=== PATIENT | male | born 1975 | race Two or more races ===

== ENCOUNTER 2020-01-25 10:54 | Emergency (ER) | payer OTHER, SELFPAY | END 2020-01-25 12:22 | disposition left against medical advice (07) | PROVIDERS: Emergency Provider Emergency Medicine; PCP Nurse Practitioner Family | DX: F41.9 Anxiety disorder, unspecified (principal) | CPT/HCPCS: 99281 ==

== ENCOUNTER → 2020-06-27 10:58 | Outpatient (BNVA) | payer OTHER, SELFPAY | PROVIDERS: Visit Provider Internal Medicine | DX: F11.99 Opioid use, unspecified with unspecified opioid-induced disorder (principal) | CPT/HCPCS: 80305; 99212 ==

== ENCOUNTER → 2020-07-03 11:13 | Outpatient (BNVA) | payer OTHER, SELFPAY | PROVIDERS: Visit Provider Internal Medicine | DX: Z51.81 Encounter for therapeutic drug level monitoring (principal) | CPT/HCPCS: 80305; 99211 ==

== ENCOUNTER → 2020-07-17 10:32 | Outpatient (BNVA) | payer OTHER, SELFPAY | PROVIDERS: Visit Provider Internal Medicine | DX: Z51.81 Encounter for therapeutic drug level monitoring (principal) | CPT/HCPCS: 80305; 99211 ==

== ENCOUNTER → 2020-07-23 10:45 | Outpatient (BNVA) | payer OTHER, SELFPAY | PROVIDERS: Visit Provider Internal Medicine | DX: Z51.81 Encounter for therapeutic drug level monitoring (principal) | CPT/HCPCS: 80305; 99212 ==

== ENCOUNTER → 2020-08-21 09:51 | Outpatient (BNVA) | payer OTHER, SELFPAY | PROVIDERS: Visit Provider Nurse Practitioner Psychiatric/Mental Health | DX: F11.99 Opioid use, unspecified with unspecified opioid-induced disorder (principal); F12.90 Cannabis use, unspecified, uncomplicated; F14.90 Cocaine use, unspecified, uncomplicated | CPT/HCPCS: 80305; 99212 ==

== ENCOUNTER 2020-08-28 09:37 | Outpatient (REF) | payer OTHER, SELFPAY ==
[2020-08-28 11:52] LABS: Hemoglobin 13.9 g/dl (14.0-18.0); Mean Corpuscular HGB Conc 33.1 g/dl (31.0-36.0); Mean Corpuscular Volume 93.5 fL (80-98); Mean Platelet Volume 9.9 fL (9.4-12.4); NRBC Pct Auto 0.8 /100WBC (0.0-0.2); Platelet Count 298 X10*3/uL (160-400); Red Blood Count 4.49 X10*6/uL (4.60-5.80); White Blood Count 6.3 X10*3/uL (4.8-10.8)
[2020-08-28 12:13] LABS: Alanine Aminotransferase 14 U/L (0-40); Albumin Level 4.3 g/dL (3.5-5.0); Alkaline Phosphatase 79 U/L (39-117); Anion Gap 14 (12-20); Aspartate Amino Transferase 15 U/L (5-37); Bilirubin Direct < 0.2 mg/dL (0.0-0.5); Bilirubin Total 0.3 mg/dL (0.0-1.0); Blood Urea Nitrogen 15 mg/dL (9-16); Calcium 9.6 mg/dL (8.4-10.2); Carbon Dioxide 29 mmol/L (22-29); Chloride 105 mmol/L (96-108); Estimated Glomerular Filt Rate > 60; Glucose Random 87 mg/dL (60-115); Potassium 4.9 mmol/L (3.3-5.1); Sodium 143 mmol/L (135-145); Total Protein 7.3 g/dL (6.5-8.0)
[2020-08-28 12:28] LABS: HBS Num1 0.85 mIU/mL (0-7.99); HIV AB/AG Nonreactive (Nonreactive); HIV Num 1 0.06 S/CO (0.00-0.99); Hepatitis B Surface Antigen Negative (Negative); ~HepC Num1 0.17 S/CO (0.00-0.79); ~Hepatitis B Surface Antibody NONREACTIVE (Nonreactive); ~Hepatitis C Antibody Nonreactive (Nonreactive)
[2020-08-29 08:48] LABS: Hepatitis A Antibody IgG REACTIVE (Nonreactive); ~Hepatitis A Antibody IgG 3.73 S/CO (0.00-0.99)
[2020-08-30 23:07] LABS: TS Negative Control Passed; TS Panel A 0; TS Panel B 0; TS Positive Control Passed; TSpotTB Negative (SeeBelow)
== END 2020-08-28 09:38 | disposition home or self-care (01) ==
LOC: HO.LAB 09:37
PROVIDERS: Absent Provider Internal Medicine; PCP Nurse Practitioner Family; Visit Provider Nurse Practitioner Psychiatric/Mental Health
DX: F11.99 Opioid use, unspecified with unspecified opioid-induced disorder (principal); Z51.81 Encounter for therapeutic drug level monitoring
CPT/HCPCS: 36415; 80048; 80076; 85027; 86481; 86706; 86708; 86803; 87340; 87389; 99212

== ENCOUNTER → 2020-09-12 10:22 | Outpatient (BNVA) | payer OTHER, SELFPAY | PROVIDERS: Visit Provider Nurse Practitioner Psychiatric/Mental Health | DX: Z51.81 Encounter for therapeutic drug level monitoring (principal) | CPT/HCPCS: 80305; 99211 ==

== ENCOUNTER 2020-09-20 11:57 | Emergency (ER) | payer OTHER, SELFPAY ==
[2020-09-20 12:08] VITALS: BP 108/50; PULSE 51; RESP 16; TEMP 36.8; O2SAT 99; BMI 19.0
[2020-09-20 12:12] VITALS: BP 115/41; PULSE 56; O2SAT 100
[2020-09-20 12:32] LABS: Glucose Urine UA NEG (NEG); Leukocyte Esterase Urine NEG (NEG); Nitrite Urine NEG (NEG); Specific Gravity - Urine >= 1.030 (1.005-1.025); Urine Blood NEG (NEG); Urine Ketones NEG (NEG); Urine Protein NEG (NEG-TRACE)
[2020-09-20 12:33] LABS: Appearance Urine HAZY; Color Urine YELLOW
--- NOTE | 2020-09-20 12:38 | ED_ITS ---
HPI - Extremity Problem General Chief complaint: Extremity Injury, Upper Stated complaint: R HAND TINGLING/NUMB S/P HEROIN USE 2 DAYS AGO Time Seen by Provider: 09/20/20 12:09 Source: patient Mode of arrival: ambulatory History of Present Illness HPI Narrative: 44-year-old male with a past medical history of substance abuse presenting to the ED complaining of right hand/forearm numbness/tingling x2 days S/P injecting heroin and cocaine into hand. Reports doses 1st time and acting in to right hand. Admits after used believes he fell asleep on arm/hand. Denies known injury/trauma or for home. Denies fever, chills, weakness. States he is [facility] Related Data Previous Rx's Medication Instructions Recorded aclidinium bromide 400 1 inh PO BID #1 insert 07/24/20 mcg/actuation breath activated powder inhaler baclofen 20 mg tablet 20 mg PO DAILY PRN #30 tab 07/24/20 montelukast 10 mg tablet 10 mg PO BEDTIME 90 Days #90 tab 07/24/20 quetiapine 300 mg tablet 300 mg PO DAILY 30 Days #30 tab 07/24/20 hydroxyzine pamoate 25 mg capsule 25 mg PO TID PRN 7 Days #21 cap 08/21/20 naloxone 4 mg/actuation nasal spray 4 mg INTRANASAL Q2M PRN #2 ea 08/21/20 clonazepam 1 mg tablet 1 mg PO BID PRN 30 Days #60 tab 08/25/20 gabapentin 100 mg capsule 200 mg PO TID 30 Days #180 cap 08/31/20 ondansetron HCl 8 mg tablet 8 mg PO DAILY PRN #30 tab 09/02/20 albuterol sulfate 90 mcg/actuation 2 inh INHALATION Q4H PRN 30 Days 09/08/20 breath activated powder inhaler #1 ea buprenorphine 8 mg-naloxone 2 mg 1 film SUBLINGUAL BID 6 Days #12 ea 09/12/20 sublingual film acetaminophen [Tylenol Extra 500 mg PO Q6H PRN #20 tab 09/20/20 Strength] naproxen 500 mg PO BID PRN 10 Days #20 tab 09/20/20 Allergies Allergy/AdvReac Type Severity Reaction Status Date / Time amoxicillin [AMOXICILLIN] AdvReac Intermediate NAUSEA & Verified 08/28/20 09:51 VOMITING clavulanic acid [Augmentin] AdvReac Intermediate Vomiting Verified 08/28/20 09:51 Review of Systems Review of Systems: Constitutional: No Fever, No Chills, No Fatigue, No Malaise Cardiovascular: No Chest Pain, No SOB Respiratory: No Cough, No Dyspnea Gastrointestinal: No Nausea, No Vomiting, No Abdominal pain Musculoskeletal: + joint pain, No Myalgias, No Joint Swelling Skin: No Skin Lesions, No rash Neuro: No Weakness, + Numbness, + Paresthesias, No Headache Yes all other systems are reviewed and are negative [facility], [facility] Past Medical History Attestation statement: The following information was validated with the patient. Medical History (Updated 09/20/20 @ 12:41 by CARLEY Noriega) Opioid use disorder Social History Social History Advance Directives: No Advance Directives Information Provided: No Physical Exam Vital Signs: Vital Signs: Last Vital Signs Temp 98.3 F 09/20/20 12:08 Pulse 51 09/20/20 12:08 Resp 16 09/20/20 12:08 BP 108/50 L 09/20/20 12:08 Pulse Ox 99 09/20/20 12:08 Body Mass Index 19.0 Const: General: cooperative, healthy appearing and no acute distress Orientation/consciousness: patient oriented x3 Limitations: no limitations HENMT: Head: Yes normal to inspection Ears: hearing grossly normal bilaterally General nose exam: Normal external nose present Face and sinus: Yes normal facial exam Eyes: General: appearance normal, both eyes and all related structures EOM: EOMs intact bilaterally Neck: Neck: Yes normal visual inspection and Yes no meningeal signs Resp: Effort & Inspection: normal respiratory effort Cardio: Rate: regular rate Heart sounds: S1 normal heart sound present and S2 normal heart sound present Peripheral pulses: radial pulses present GI: Inspection: Yes normal to inspection Skin: Rashes: no rashes Wounds: no wounds Neuro: General: patient oriented x3, tone normal, moves all extremities and no meningeal signs Gait exam (Neuro): Normal gait present Motor exam (neuro): 5/5 motor strength present throughout Extrem: General: Yes normal to inspection MDM - Extremity (Nontraumatic) MDM Narrative Medical decision making narrative: 44-year-old male with a past medical history of substance abuse presenting to the ED complaining of right hand/forearm numbness/tingling x2 days S/P injecting heroin and cocaine into hand. On exam VSS, NAD, well appearing, distal pulses intact, full range of motion intact, strength intact, no evidence of infection/cellulitis, no streaking. Likely compressive neuropathy. Low concern for ischemia or DVT. Discussed with patient worrisome signs and symptoms and strict return precautions. He [facility] on Tuesday Lab Data Labs: Lab Results 09/20/20 Range/Units 12:26 Urine Color YELLOW Urine Appearance HAZY Urine pH 6.0 (5.0-8.0) Ur Specific [place] >= 1.030 H (1.005-1.025) Urine Protein NEG (NEG-TRACE) MG/DL Urine Glucose (UA) NEG (NEG) MG/DL Urine Ketones NEG (NEG) MG/DL Urine Blood NEG (NEG) Urine Nitrite NEG (NEG) Ur Leukocyte Esterase NEG (NEG) Discharge Plan Discharge Clinical Impression: Compression neuropathy of upper extremity Qualifiers: Laterality: right Qualified Code(s): G56.91 - Unspecified mononeuropathy of right upper limb Patient Disposition: Home, Self-Care Instructions: Peripheral Neuropathy (ED) Additional Instructions: Avoid injecting any cocaine in your extremities Take ibuprofen and Tylenol as needed Apply heat, practice massaging/exercises Follow-up with your primary care doctor Prescriptions: New acetaminophen [Tylenol Extra Strength] 500 mg tablet 500 mg PO Q6H PRN (Reason: pain or fever) Qty: 20 RF: 0 naproxen 500 mg tablet 500 mg PO BID PRN (Reason: pain) 10 Days Qty: 20 RF: 0 No Action Tudorza Pressair 400 mcg/actuation aerosol powdr breath activated 1 inh PO BID Qty: 1 RF: 2 baclofen 20 mg tablet 20 mg PO DAILY PRN (Reason: muscle pain) Qty: 30 RF: 5 montelukast 10 mg tablet 10 mg PO BEDTIME 90 Days Qty: 90 RF: 1 quetiapine [Seroquel] 300 mg tablet 300 mg PO DAILY 30 Days Qty: 30 RF: 2 clonazepam 1 mg tablet 1 mg PO BID PRN (Reason: anxiety) 30 Days Qty: 60 RF: 0 gabapentin 100 mg capsule 200 mg PO TID 30 Days Qty: 180 RF: 2 ondansetron HCl 8 mg tablet 8 mg PO DAILY PRN (Reason: for nausea) Qty: 30 RF: 0 albuterol sulfate 90 mcg/actuation aerosol powdr breath activated 2 inh inhalation Q4H PRN (Reason: shortness of breath) 30 Days Qty: 1 RF: 3 buprenorphine-naloxone 8-2 mg film 1 film sublingual BID 6 Days Qty: 12 RF: 0 hydroxyzine pamoate [Vistaril] 25 mg capsule 25 mg PO TID PRN (Reason: itching) 7 Days Qty: 21 RF: 0 naloxone 4 mg/actuation spray,non-aerosol 4 mg intranasal Q2M PRN (Reason: opioid overdose) Qty: 2 RF: 0 Referrals: ED Physician,Generic [Physician] - 2 days Discharge Date/Time: 09/20/20 12:50
== END 2020-09-20 12:50 | disposition home or self-care (01) ==
PROVIDERS: Physician Assistant; Emergency Provider Emergency Medicine
DX: G56.91 Unspecified mononeuropathy of right upper limb (principal); F14.10 Cocaine abuse, uncomplicated; F11.20 Opioid dependence, uncomplicated
CPT/HCPCS: 81003; 99283

== ENCOUNTER → 2020-09-25 10:42 | Outpatient (BNVA) | payer OTHER, SELFPAY | PROVIDERS: Visit Provider Nurse Practitioner Psychiatric/Mental Health | DX: F11.99 Opioid use, unspecified with unspecified opioid-induced disorder (principal) | CPT/HCPCS: 80305; 99212 ==

== ENCOUNTER → 2020-12-30 10:09 | Outpatient (REF) | payer OTHER, SELFPAY ==
--- NOTE | 2020-12-30 10:16 | ECG_ITS ---
Test Reason : metadone, qt prolong Blood Pressure : / mmHG Vent. Rate : 059 BPM Atrial Rate : 059 BPM P-R Int : 146 ms QRS Dur : 074 ms QT Int : 364 ms P-R-T Axes : 067 048 044 degrees QTc Int : 360 ms Sinus bradycardia Otherwise normal ECG When compared with ECG of 05-JUL-2016 13:29, Questionable change in QRS axis ST elevation now present in Anterior leads Referred By: Sandra Baker Electronically Signed By:RANJIT DANIEL
== END ==
LOC: HO.CARD 10:09
PROVIDERS: PCP Nurse Practitioner Family; Visit Provider Family Medicine
DX: Z79.899 Other long term (current) drug therapy (principal)
CPT/HCPCS: 93005

== ENCOUNTER 2021-05-20 11:53 | Emergency (ER) | payer OTHER, SELFPAY ==
--- NOTE | ~2021-05-20 | XR_ITS ---
EXAMINATION: XR CHEST CLINICAL INFORMATION: Pain in left side of the chest COMPARISON: 07/05/2016 TECHNIQUE: 2 views of the chest were obtained. FINDINGS: No significant abnormality is noted involving the heart, lungs, mediastinum, bony thorax or soft tissues. XR/XR chest 2V IMPRESSION: Unremarkable examination.
[2021-05-20 11:59] VITALS: BP 117/47; PULSE 70; RESP 16; TEMP 36.6; O2SAT 98; BMI 20.2
[2021-05-20 13:10] VITALS: BP 135/64; PULSE 70; RESP 18; TEMP 36.1; O2SAT 96
--- NOTE | 2021-05-20 14:38 | ED.GENADULT ---
HPI - General Adult General Chief complaint: General Medical Stated complaint: LUNG PAIN Time Seen by Provider: 05/20/21 14:18 Source: patient Mode of arrival: ambulatory Limitations: no limitations History of Present Illness HPI narrative: 45-year-old male who presents emergency department for evaluation of chest pain, cough and shortness of breath. The patient states that he has asthma and COPD and he often gets chest pain. He states that is experiencing pain in the left side of his chest. He states the pain is a constant, sharp tightness which is worse with coughing, breathing and lying down flat. He states that his doctor recently treated with prednisone which causes the pain to resolve but now the pain has returned. He states that he has a cough which is nonproductive. States he feels short of breath but this is improved when he uses inhaler. He denied fever, chills, nausea, vomiting, myalgias, arthralgias. Patient states he has had COVID-19 infections twice last year. The patient is in a methadone maintenance program. He states that he recently used heroin 4 days prior. He states he does have intranasal Narcan at home. Related Data Previous Rx's Medication Instructions Recorded hydroxyzine pamoate 25 mg capsule 25 mg PO TID PRN 7 Days #21 cap 08/21/20 (Vistaril) acetaminophen 500 mg tablet 500 mg PO Q6H PRN #20 tab 09/20/20 (Tylenol Extra Strength) buprenorphine 8 mg-naloxone 2 mg 1 film SUBLINGUAL BID #14 ea 09/25/20 sublingual film baclofen 20 mg tablet 20 mg PO DAILY PRN #30 tab 10/29/20 ondansetron HCl 8 mg tablet 8 mg PO DAILY PRN #30 tab 12/18/20 albuterol sulfate 90 mcg/actuation 2 inh INHALATION Q4H PRN 30 Days 01/13/21 breath activated powder inhaler #1 ea montelukast 10 mg tablet 10 mg PO BEDTIME 90 Days #90 tab 02/10/21 clonidine HCl 0.1 mg tablet 0.1 mg PO BEDTIME 30 Days #30 tab 03/10/21 gabapentin 100 mg capsule 200 mg PO TID 30 Days #180 cap 03/10/21 aclidinium bromide 400 1 inh PO BID #1 insert 03/18/21 mcg/actuation breath activated powder inhaler (Tudorza Pressair) naproxen 500 mg tablet 500 mg PO BID PRN 10 Days #20 tab 04/02/21 clonazepam 1 mg tablet 1 mg PO BID PRN 30 Days #60 tab 05/04/21 naloxone 4 mg/actuation nasal spray 4 mg INTRANASAL Q2M PRN #2 ea 05/04/21 prednisone 20 mg tablet 40 mg PO DAILY 5 Days #10 tab 05/04/21 quetiapine 300 mg tablet 300 mg PO DAILY #90 tab 05/11/21 prednisone 20 mg tablet 60 mg PO DAILY 5 Days #15 tab 05/20/21 Allergies Allergy/AdvReac Type Severity Reaction Status Date / Time amoxicillin [AMOXICILLIN] AdvReac Intermediate NAUSEA & Verified 08/28/20 09:51 VOMITING clavulanic acid [Augmentin] AdvReac Intermediate Vomiting Verified 08/28/20 09:51 Review of Systems Review of Systems: Yes all other systems are reviewed and are negative [facility] Past Medical History [facility] Narrative: Past medical history: Asthma, COPD, chronic neck and back pain, COVID-19 infection x2. Social history: He denies tobacco use. He denies alcohol use. He is in a methadone maintenance program. He states that he last used heroin for 4 days prior. Medical History Opioid use disorder Social History Social History (Updated 09/25/20 @ 11:01 by Myranda Lowry CMA) Patient Tobacco Use Status: Never used Tobacco Advance Directives: No Advance Directives Information Provided: No Physical Exam ED Vital Signs: Vital Signs - 24 hr 05/20/21 11:59 Temperature 98 F Pulse Rate 70 Respiratory Rate 16 Blood Pressure 117/47 L Pulse Oximetry 98 BMI result Body Mass Index 20.2 Const General: cooperative and no acute distress Orientation/consciousness: oriented to person and oriented to place Limitations: no limitations HENMT Head: Yes normal to inspection, Yes normocephalic and Yes atraumatic Ears: external ears normal General nose exam: Normal external nose present Face and sinus: Yes normal facial exam Mouth: Normal oral and palatal mucosa present Throat: Yes posterior oropharynx normal Eyes General: appearance normal, both eyes and all related structures Pupils: Equal, round and reactive pupils present Neck Neck: Yes normal visual inspection, Yes no lymphadenopathy, Yes trachea midline and Yes supple Chest Chest palpation & inspection: normal inspection of the chest and tenderness (Left chest wall) Resp Effort & Inspection: normal respiratory effort and able to speak in complete sentences Auscultation: wheezes (Diffuse wheezing at the end of expiration.) Cardio Rate: regular rate Rhythm: regular rhythm Heart sounds: S1 normal heart sound present, S2 normal heart sound present and no murmurs GI Inspection: Yes normal to inspection Palpation (GI): Soft to palpation, nontender and no guarding Auscultation: normal bowel sounds General: Yes no CVA tenderness Back/Spine/Pelvis Back: no CVA tenderness Skin General skin exam: no rashes or lesions noted Neuro General: oriented to person and oriented to place Cranial nerves: Yes CN's II-XII intact bilaterally and Yes Equal, round and reactive pupils present Cognition (Neuro): normal cognition Motor exam (neuro): 5/5 motor strength present throughout Extrem General: Yes normal to inspection Psych Appearance: grossly normal Speech and movement: Normal speech and movement present Affect: normal affect Attitude: cooperative Thought process: Normal thought process present Thought content: Normal thought content present Course Course Course Narrative: 45-year-old male with a history of asthma COPD who presents emergency department for evaluation of left-sided chest pain, cough shortness of breath. Vital signs were normal with an O2 saturation 98% on room air. Physical examination did reveal left-sided chest wall tenderness wheezing at the end of expiration. Chest x-ray was negative. Patient's presentation is consistent with pleuritic chest pain is likely related to his asthma. The patient was started on prednisone 60 mg once a day for 5 days. He was given printed and verbal instructions discharged home. Discharge Plan Discharge Clinical Impression: Asthma exacerbation, Chest pain, pleuritic Patient Disposition: Home, Self-Care Instructions: Asthma (DC) Additional Instructions: Continue using your inhaler is and nebulizer as prescribed by your doctor Take prednisone 20 mg pills, 3 pills once a day for 5 days. Follow-up with your doctor in 2 days. Please return to the emergency department if your symptoms get worse or if you develop any symptoms that are concerning to you. Prescriptions: New prednisone 20 mg tablet 60 mg PO DAILY 5 Days Qty: 15 0RF No Action baclofen 20 mg tablet 20 mg PO DAILY PRN (Reason: muscle pain) Qty: 30 5RF ondansetron HCl 8 mg tablet 8 mg PO DAILY PRN (Reason: for nausea) Qty: 30 0RF albuterol sulfate 90 mcg/actuation aerosol powdr breath activated 2 inh inhalation Q4H PRN (Reason: shortness of breath) 30 Days Qty: 1 3RF montelukast 10 mg tablet 10 mg PO BEDTIME 90 Days Qty: 90 1RF gabapentin 100 mg capsule 200 mg PO TID 30 Days Qty: 180 2RF clonidine HCl 0.1 mg tablet 0.1 mg PO BEDTIME 30 Days Qty: 30 2RF Tudorza Pressair 400 mcg/actuation aerosol powdr breath activated 1 inh PO BID Qty: 1 2RF naproxen 500 mg tablet 500 mg PO BID PRN (Reason: pain) 10 Days Qty: 20 0RF prednisone 20 mg tablet 40 mg PO DAILY 5 Days Qty: 10 0RF clonazepam 1 mg tablet 1 mg PO BID PRN (Reason: anxiety) 30 Days Qty: 60 0RF naloxone 4 mg/actuation spray,non-aerosol 4 mg intranasal Q2M PRN (Reason: opioid overdose) Qty: 2 0RF Rx Instructions: spray 1 dose into ONE nostril; alternate nostrils w each dose until help arrives quetiapine 300 mg tablet 300 mg PO DAILY Qty: 90 0RF acetaminophen [Tylenol Extra Strength] 500 mg tablet 500 mg PO Q6H PRN (Reason: pain or fever) Qty: 20 0RF hydroxyzine pamoate [Vistaril] 25 mg capsule 25 mg PO TID PRN (Reason: itching) 7 Days Qty: 21 0RF buprenorphine-naloxone 8-2 mg film 1 film sublingual BID Qty: 14 0RF
== END 2021-05-20 14:56 | disposition home or self-care (01) ==
PROVIDERS: Emergency Provider Emergency Medicine Emergency Medical Services; PCP Nurse Practitioner Family
DX: J45.901 Unspecified asthma with (acute) exacerbation (principal); R07.89 Other chest pain; F11.20 Opioid dependence, uncomplicated
CPT/HCPCS: 71046; 99283; 99284

== ENCOUNTER 2023-02-22 07:02 | Emergency (ER) | payer OTHER, SELFPAY ==
--- NOTE | ~2023-02-22 | XR_ITS ---
EXAMINATION: XR CHEST CLINICAL INFORMATION: Diffuse chest pain. COMPARISON: None available. TECHNIQUE: 2 views of the chest were obtained. FINDINGS: The lungs are hyperinflated but clear of acute process. Heart size and pulmonary vascularity is normal. No gross bony abnormality seen. XR/XR chest 2V IMPRESSION: Unremarkable chest examination.
--- NOTE | ~2023-02-22 | CT_ITS ---
EXAMINATION: CT ANGIOGRAM OF THE CHEST WITH AND WITHOUT CONTRAST (CT PULMONARY ANGIOGRAM FOR PE) CLINICAL INFORMATION: Reason for Exam elevated d dimer, L sided chest pain, travel COMPARISON: CTA chest from 06/16/2016 TECHNIQUE: Prior to contrast administration, noncontrast localization images were obtained. Subsequently, multidetector volumetric imaging was performed from the thoracic inlet to below the diaphragms following the administration of 80 mL Omnipaque 350 intravenous contrast. No contrast reaction reported Sagittal, coronal, and MIP oblique sagittal reformatted images were obtained on the CT workstation, uploaded to PACS, and reviewed. This CT examination was performed using dose optimization techniques as appropriate, variously including the following: *Automated exposure control *Adjustment of mA and/or kV according to patient size (this includes techniques or standardized protocols for targeted exams where dose is matched to indication/reason for exam; i.e. extremities or head) *Use of iterative reconstruction technique Total exam dose-length product 226 mGy-cm FINDINGS: QUALITY OF STUDY/CONTRAST BOLUS: Satisfactory. PULMONARY ARTERIES: No pulmonary emboli. Main pulmonary artery is not enlarged. THORACIC AORTA: No aneurysm. LUNG/PLEURA: Biapical pleural parenchymal scarring. Stable subpleural nodule along the posterior aspect of the left upper lobe measuring 4 mm (series 7, image 261). Remaining pleural-based nodular foci are stable. No new enlarged or suspicious pulmonary nodules or masses are noted. Central airways are patent. No pneumothorax. No large pleural effusion. MEDIASTINUM: Heart is not enlarged. No pericardial effusion. No coronary artery calcifications are noted. No enlarged lymph nodes per size criteria. No evidence of septal bowing or right heart strain. CORONARY ARTERY CALCIFICATION: None visualized on this study. CHEST WALL/AXILLA: No axillary or internal mammary lymphadenopathy. OSSEOUS STRUCTURES: No acute or suspicious osseous abnormality. UPPER ABDOMEN: Unremarkable. No reflux of contrast into the hepatic veins to suggest elevated right heart pressures. CT/CT angio chest PE protocol IMPRESSION: 1. No pulmonary emboli. 2. Stable bilateral pulmonary nodules the largest measuring up to 4 mm. No new enlarged or suspicious pulmonary nodules or masses are noted.
--- NOTE | 2023-02-22 07:07 | ECG_ITS ---
Test Reason : cp Blood Pressure : / mmHG Vent. Rate : 063 BPM Atrial Rate : 063 BPM P-R Int : 148 ms QRS Dur : 086 ms QT Int : 380 ms P-R-T Axes : 074 023 048 degrees QTc Int : 388 ms Sinus rhythm with Premature supraventricular complexes Minimal voltage criteria for LVH, may be normal variant ( [place] product ) RSR' or QR pattern in V1 suggests right ventricular conduction delay Nonspecific ST abnormality Abnormal ECG When compared with ECG of 30-DEC-2020 10:23, Premature supraventricular complexes are now Present Referred By: Generic ED Physician Electronically Signed By:NICHOLAS PETERSON MD
[2023-02-22 07:12] VITALS: BP 137/82; PULSE 67; RESP 16; TEMP 36.8; O2SAT 97; BMI 18.4
--- NOTE | 2023-02-22 07:44 | ED_ITS ---
HPI - Chest Pain General Chief Complaint: Chest Pain Stated Complaint: Chest pain Time Seen by Provider: 02/22/23 07:38 Source: patient Mode of arrival: ambulatory Limitations: no limitations History of Present Illness HPI narrative: 47 year old male with pmhx significant for asthma, COPD, IV heroin abuse, opioid use disorder on methadone presents to the ED today with a complaint of left- sided lung pain x5 days. Reports driving home from a hunting trip in [facility] 5 days ago when he began having sudden onset left sided chest pain. Pain has not been intermittent since onset. Describes it as sharp/stabbing in character. No radiation. Rates pain intensity 10/10 at its worst. 1/10 at present. Pain exacerbated with deep breathing and reaching forward with left arm. Admits to taking an old prescription of doxycycline over the last 4 days in attempt to resolve his symptoms. Endorses incidental finding of 4 mm left lung nodule 10 years ago however has not followed up for this. Endorses marijuana use and IV heroin use, last used heroin yesterday. Denies tick bites. Admits to occasional night sweats. Denies fever, chills, rash, weight changes, fatigue, joint swelling, neck or back pain, palpitations, SOB, n/v, calf pain. Related Data Previous Rx's Medication Instructions Recorded hydroxyzine pamoate 25 mg capsule 25 mg PO TID PRN itching 7 days 08/21/20 (Vistaril) #21 caps acetaminophen 500 mg tablet 500 mg PO Q6H PRN pain or fever 09/20/20 (Tylenol Extra Strength) #20 tabs buprenorphine 8 mg-naloxone 2 mg 1 film sublingual BID #14 ea 09/25/20 sublingual film ondansetron HCl 8 mg tablet 8 mg PO DAILY PRN for nausea #30 12/18/20 tabs naloxone 4 mg/actuation nasal spray 4 mg intranasal Q2M PRN opioid 05/04/21 overdose #2 ea prednisone 20 mg tablet 40 mg (2 x 20 mg) PO DAILY 5 days 05/04/21 #10 tabs prednisone 20 mg tablet 60 mg (3 x 20 mg) PO DAILY 5 days 05/20/21 #15 tabs montelukast 10 mg tablet 10 mg PO BEDTIME 90 days #90 tabs 07/15/21 aclidinium bromide 400 1 inh PO BID #1 insert 07/27/21 mcg/actuation breath activated powder inhaler (Tudorza Pressair) loratadine 10 mg tablet 10 mg PO DAILY 30 days #30 tabs 08/25/21 albuterol sulfate 90 mcg/actuation 2 puff inhalation Q6H PRN 12/16/21 aerosol inhaler shortness of breath or wheezing 30 days #8.5 grams baclofen 20 mg tablet 20 mg PO DAILY PRN muscle pain #30 01/15/22 tabs naproxen 500 mg tablet 500 mg PO BID PRN pain 10 days #20 01/15/22 tabs fluticasone propionate 50 1 spray intranasal BID 30 days #16 01/17/22 mcg/actuation nasal grams spray,suspension clonazepam 1 mg tablet 1 mg PO BID PRN anxiety 30 days 03/24/22 #60 tabs clonidine HCl 0.1 mg tablet 0.1 mg PO BEDTIME 30 days #30 tabs 03/24/22 gabapentin 100 mg capsule 200 mg (2 x 100 mg) PO TID 30 days 03/24/22 #180 caps albuterol sulfate 2.5 mg/3 mL 2.5 mg (3 mL) inhalation Q6H PRN 04/15/22 (0.083 %) solution for nebulization shortness of breath or wheezing 30 days #180 mL quetiapine 300 mg tablet 300 mg PO DAILY #90 tabs 04/15/22 levalbuterol HCl 1.25 mg/3 mL 1.25 mg (3 mL) inhalation TID PRN 04/29/22 solution for nebulization (Xopenex) shortness of breath or wheezing #90 mL indomethacin 25 mg capsule 25 mg PO Q6-8H PRN pain (scale 02/22/23 score 4-6) #20 caps Allergies Allergy/AdvReac Type Severity Reaction Status Date / Time amoxicillin [AMOXICILLIN] AdvReac Intermediate NAUSEA & Verified 02/22/23 07:42 VOMITING clavulanic acid [Augmentin] AdvReac Intermediate Vomiting Verified 02/22/23 07:42 Review of Systems 2 Review of Systems: Constitutional: No fever, chills, fatigue, +night sweats, No weight changes ENT/Mouth: No ear pain, hearing loss, nasal congestion, sinus pain, rhinorrhea, sore throat Eyes: No eye pain, swelling, redness, vision changes, discharge Cardio: +chest pain, No palpitations, [place], orthopnea, peripheral edema Pulm: No SOB, cough, sputum, wheezing, dyspnea, hemoptysis GI: No nausea, vomiting, hematemesis, abdominal pain, diarrhea, constipation, hematochezia, melena : No irregular bleeding, dysuria, frequency, urgency, hesitancy, hematuria, flank pain, urinary flow changes, urinary incontinence or retention MSK: No back pain, neck pain, joint pain, myalgias Skin: No lesions, rashes Neuro: No weakness, numbness, paresthesias, LOC, dizziness, headache All other systems reviewed and are negative. [facility] Past Medical History Attestation statement: The following information was validated with the patient. Source: old records reviewed and nursing notes reviewed Medical History Back pain Leg pain Hypogonadism in male Chronic obstructive pulmonary disease (COPD) Asthma Opioid use disorder Surgical History History of surgery on arm Social History Patient Tobacco Use Status: Never used Tobacco Smoked in Last 30 Days: No Use of substances other than those prescribed or required for medical reasons: Yes Substance Use Type: Heroin Substance Use Frequency: Daily Last Used Substance: Hours (ago) Any prior treatment program specific to substance use: Yes Advance Directives: No Advance Directives Information Provided: Yes Physical Exam 2 Vital Signs: Vital Signs: Last Vital Signs Temp 98.2 F 02/22/23 07:12 Pulse 62 02/22/23 14:29 Resp 18 02/22/23 14:29 BP 134/87 02/22/23 14:29 Pulse Ox 99 02/22/23 14:29 O2 Del Method Room Air 02/22/23 14:29 BMI result Body Mass Index 18.4 Vital signs stable Const: General: cooperative, healthy appearing, comfortable, no acute distress, alert and awake Nutritional Appearance: thin O rientation/consciousness: patient oriented x3 Limitations: no limitations HEENT: Head: Yes normal to inspection Ears: hearing grossly normal bilaterally Mouth: Normal oral and palatal mucosa present and moist mucous membranes Eyes: General: appearance normal, both eyes and all related structures C onjunctivae: conjunctivae normal Sclerae: sclerae normal Pupils: Equal, round and reactive pupils present Neck: Neck: Yes normal visual inspection and Yes no lymphadenopathy Chest: Other: + there is tenderness to palpation of th e left anterolateral chest wall without crepitus or palpable deformity. Chest palpation & inspection: normal inspection of the chest Resp: Effort & Inspection: normal respiratory effort, able to speak in complete sentences, no pursed lip breathing, no respiratory distress, no tripod positioning and symmetric chest movement Auscultation: clear to auscultation bilaterally and no wheezes Cardio: Jugular venous distension: no JVD Rate: regular rate Rhythm: r egular rhythm Peripheral pulses: radial pulses present, posterior tibial pulses present and dorsalis pedis present GI: Inspection: Yes normal to inspection Palpation (GI): Soft to palpation, nontender and no guarding Back/Spine/Pelvis: Other: No midline spinous tenderness. No paraspinal muscle tenderness bilaterally. No step-off deformity Skin: General skin exam: no rashes or lesions noted Neuro: General: patient oriented x3, gait normal and moves all extremities Cranial nerves: Yes Equal, round and reactive pupils present Extrem: General: Yes normal to inspection, Yes capillary refill normal, Yes normal gait and No calf tenderness Course Course Course Narrative: 0930-- CBC without leukocytosis or anemia. H&H stable. Sed rate WNL. CRP slightly elevated to 1.74 > concern for inflammatory process. TSH WNL. No acute electrolyte abnormalities requiring intervention. Urine toxicology positive for fentanyl and marijuana. CXR showing hyperinflated lungs b/l > secondary to COPD. No pneumothorax. Cardiac silhouette WNL. No acute rib fracture noted. EKG showing sinus rhythm with PVCs, rate of 63 bpm, no acute ischemic changes or ST elevations. > awaiting D-dimer D-dimer noted to be 230 to > will obtain CTA chest PE protocol to rule out pulmonary embolism. COVID, flu, RSV negative. 1445-- CTA chest without evidence of pulmonary emboli. There are stable pulmonary nodules noted to bilateral lungs, largest measuring 4 mm. This correlates with patient's history of 4 mm nodule noted to left lung 10 years ago. There are no new enlarging or suspicious pulmonary nodules/masses noted on imaging. > patient informed of lab and imaging results. Patient's workup is overall unremarkable. He now tells me that he was using a bowing air a while he was hunting and this may have contributed to his left-sided chest pain that is worse with movement. Likely musculoskeletal in nature. Will send patient home with indomethacin for pain control. Additionally advised him to follow-up with a profiling machine setup operator for pulmonary nodules on imaging. Provided him with a referral to profiling machine setup operator here at [facility]. Discussed strict return precautions. All questions answered at this time. Patient is agreeable with disposition stable for discharge. Medications Administered Discontinued Medications Generic Name Dose Route Start Last Admin Trade Name Cristi PRN Reason Stop Dose Admin Sodium Chloride 1,000 mls @ 999 mls/hr 02/22/23 09:30 02/22/23 12:13 Ns IV 02/22/23 10:30 Infused .Q1H1M JEANNE Infusion Iohexol 65 ml 02/22/23 12:44 02/22/23 12:44 Iohexol 350 Mg/Ml 50 Ml Infus..Btl IV 02/22/23 12:45 65 ml ONCE ONE Administration Lorazepam 1 mg 02/22/23 13:44 02/22/23 13:56 Lorazepam 1 Mg Tablet PO 02/22/23 13:45 1 mg ONCE ONE Administration Medical Decision Making Medical Decision Making [facility] Narrative: 47 year old male with pmhx significant for asthma, COPD, IV heroin abuse, opioid use disorder on methadone presents to the ED today with a complaint of left- sided lung pain x5 days. Vital signs stable. Patient is nontoxic appearing and in no acute distress. There is tenderness to palpation of the left anterolateral chest wall. No crepitus. Palpable deformity. Abdomen is soft, ND/NT, no rebound tenderness or guarding. No pulsatile mass. Normoactive bowel sounds x4. No rashes noted on exam. Pulses 2+ throughout. Exam nonfocal. Clinical suspicion for MSK sprain/strain, rib fracture, pneumothorax, arrhythmia, ACS, pulmonary embolism, pneumothorax, substance abuse, IV drug use. Unlikely pericarditis, pleuritis, cardiac tamponade, pleural effusion. Plan at this time basic labs, EKG, troponin, D-dimer, chest x-ray. Differential Diagnosis Differential Diagnoses: The differential diagnosis associated with the presentation includes As above. Admission/Observation Consideration of admission/observation: Escalation of care including admission/observation considered In this 47-year-old male with history of pulmonary nodules and sudden left-sided chest pain admission was considered. Lab Data MDM Lab Attestation statement: I reviewed the patient's lab results. As above. 02/22/23 08:00 02/22/23 08:00 Labs: Lab Results 02/22/23 02/22/23 Range/Units 08:00 09:58 WBC 5.9 (4.8-10.8) X10*3/uL RBC 4.40 L (4.60-5.80) X10*6/uL Hgb 14.1 (14.0-18.0) g/dl Hct 42.1 (42.0-52.0) % MCV 95.7 (80.0-98.0) fL MCH 32.0 (27.0-33.0) pg MCHC 33.5 (31.0-36.0) g/dl RDW 13.2 (11.0-16.0) % Plt Count 178 (160-400) X10*3/uL MPV 9.5 (9.4-12.4) fL Immature Gran % (Auto) 0.3 (0.0-0.4) % Neut % (Auto) 55.8 (45-73) % Lymph % (Auto) 33.8 (20-40) % Gaines % (Auto) 7.5 (2-11) % Eos % (Auto) 1.9 (0-4) % Baso % (Auto) 0.7 (0-2) % Lymph # (Auto) 2.0 (1.2-4.9) X10*3/uL Gaines # (Auto) 0.4 (0.1-1.2) X10*3/uL Eos # (Auto) 0.1 (0.0-0.4) X10*3/uL Baso # (Auto) 0.0 (0.0-0.2) X10*3/uL Abs Immat Gran (auto) 0.02 (0.00-0.03) X10*3/uL Absolute Neuts (auto) 3.3 (2.0-8.3) x10*3/uL Absolute Nucleated RBC 0.000 (0.0-0.012) X10*3/uL Nucleated RBC % (auto) 0.0 (0.0-0.2) /100WBC ESR 11 (0-15) MM/HR D-Dimer High Sensitivty 232 NG/ML Sodium 140 (135-145) mmol/L Potassium 4.1 (3.3-5.1) mmol/L Chloride 103 (96-108) mmol/L Carbon Dioxide 32 H (22-29) mmol/L Anion Gap 9 L (12-20) BUN 10 (9-16) mg/dL Creatinine 0.84 (0.5-1.4) mg/dL Estim Creat Clear Calc 91.2 Estimated GFR > 60 Random Glucose 106 (60-115) mg/dL Calcium 9.1 (8.4-10.2) mg/dL Magnesium 2.0 (1.6-2.6) mg/dL Total Bilirubin 0.2 (0.0-1.0) mg/dL AST 24 (5-37) U/L ALT 23 (0-40) U/L Alkaline Phosphatase 61 (39-117) U/L Troponin I High Sens < 2.7 (<3.5-35.0) ng/L C-Reactive Protein 1.74 H (< or = 0.50) mg/dL Total Protein 7.2 (6.5-8.0) g/dL Albumin 4.4 (3.5-5.0) g/dL Lipase 14 (8-78) U/L TSH 0.72 (0.32-4.0) uIU/mL Urine Opiates Screen Not Detected (Not Detect) Urine Fentanyl Screen POSITIVE H (Not Detect) Ur Barbiturates Screen Not Detected (Not Detect) Ur Phencyclidine Scrn Not Detected (Not Detect) Ur Amphetamines Screen Not Detected (Not Detect) U Benzodiazepines Scrn Not Detected (Not Detect) Urine Cocaine Screen Not Detected (Not Detect) U Marijuana (THC) Screen POSITIVE H (Not Detect) Influenza Type A (PCR) NEGATIVE (Negative) Influenza Type B (PCR) NEGATIVE (Negative) RSV RNA Qual (PCR) NEGATIVE (Negative) SARS-CoV-2 RNA (RT-PCR) NEGATIVE (Negative) Independent Interpretation I performed an independent interpretation of an: EKG, Plain X-Ray and CT Scan Interpretation: EKG showing sinus rhythm with PVCs, ventricular rate of 63 beats per minute, QT 380, no acute ischemic changes or ST elevations. Chest x-ray without consolidation or infiltrates, agree with radiologist's interpretation. CTA chest showing bilateral pulmonary nodules, agree with radiologist's interpretation. Radiology Impression Discussion of test interpretation with radiology: I have reviewed the radiologist's reading. Radiologist Impression: XR chest 2V IMPRESSION: Unremarkable chest examination. CT angio chest PE protocol IMPRESSION: 1. No pulmonary emboli. 2. Stable bilateral pulmonary nodules the largest measuring up to 4 mm. No new enlarged or suspicious pulmonary nodules or masses are noted. External Record Review External record reviewed: Inpatient record, Office record, Outpatient record, Prior outpatient labs, Prior outpatient radiology, Primary care record and Outside ED record Prescription Management I considered prescription management with: Pain Medication Chronic Conditions Patient?s care impacted by: Other (COPD, asthma) Critical Care Time Critical Care Time Critical Care Time: No Discharge Plan Discharge Clinical Impression: Atypical chest pain Patient Disposition: Home, Self-Care Instructions: Chest Pain (ED), Chest Wall Pain (ED) Additional Instructions: Your labs today are reassuring. Your EKG was normal. The x-ray of your chest did not exhibit any pneumonia or rib fractures. This CT angiogram of your chest exhibits stable 4 mm pulmonary nodule. Please follow-up with either your primary care doctor or profiling machine setup operator for this. You have been provided with a referral to profiling machine setup operator. You may call them to make an appointment. They will not call you. Indomethacin has been sent to your pharmacy. You may take this as needed for S chest discomfort. If symptoms persist or worsen please return to the emergency department. In the case of an emergency call 911. Prescriptions: New indomethacin 25 mg capsule 25 mg PO Q6-8H PRN (Reason: pain (scale score 4-6)) Qty: 20 0RF Rx Instructions: administer with food or milk No Action ondansetron HCl 8 mg tablet 8 mg PO DAILY PRN (Reason: for nausea) Qty: 30 0RF prednisone 20 mg tablet 40 mg PO DAILY 5 Days Qty: 10 0RF naloxone 4 mg/actuation spray,non-aerosol 4 mg intranasal Q2M PRN (Reason: opioid overdose) Qty: 2 0RF Rx Instructions: spray 1 dose into ONE nostril; alternate nostrils w each dose until help arrives montelukast 10 mg tablet 10 mg PO BEDTIME 90 Days Qty: 90 1RF Tudorza Pressair 400 mcg/actuation aerosol powdr breath activated 1 inh PO BID Qty: 1 2RF loratadine 10 mg tablet 10 mg PO DAILY 30 Days Qty: 30 4RF albuterol sulfate 90 mcg/actuation HFA aerosol inhaler 2 puff inhalation Q6H PRN (Reason: shortness of breath or wheezing) 30 Days Qty: 8.5 3RF baclofen 20 mg tablet 20 mg PO DAILY PRN (Reason: muscle pain) Qty: 30 5RF naproxen 500 mg tablet 500 mg PO BID PRN (Reason: pain) 10 Days Qty: 20 0RF fluticasone propionate 50 mcg/actuation spray,suspension 1 spray intranasal BID 30 Days Qty: 16 4RF Rx Instructions: administer into each nostril clonazepam 1 mg tablet 1 mg PO BID PRN (Reason: anxiety) 30 Days Qty: 60 0RF clonidine HCl 0.1 mg tablet 0.1 mg PO BEDTIME 30 Days Qty: 30 2RF gabapentin 100 mg capsule 200 mg PO TID 30 Days Qty: 180 2RF quetiapine 300 mg tablet 300 mg PO DAILY Qty: 90 0RF albuterol sulfate 2.5 mg /3 mL (0.083 %) solution for nebulization 2.5 mg inhalation Q6H PRN (Reason: shortness of breath or wheezing) 30 Days Qty: 180 1RF levalbuterol HCl [Xopenex] 1.25 mg/3 mL solution for nebulization 1.25 mg inhalation TID PRN (Reason: shortness of breath or wheezing) Qty: 90 0RF Rx Instructions: for up to 3 doses acetaminophen [Tylenol Extra Strength] 500 mg tablet 500 mg PO Q6H PRN (Reason: pain or fever) Qty: 20 0RF prednisone 20 mg tablet 60 mg PO DAILY 5 Days Qty: 15 0RF hydroxyzine pamoate [Vistaril] 25 mg capsule 25 mg PO TID PRN (Reason: itching) 7 Days Qty: 21 0RF buprenorphine-naloxone 8-2 mg film 1 film sublingual BID Qty: 14 0RF Referrals: [facility] Pul[facility]ology [facility] [Provider Group] Interventions: ED Discharge Assessment Last Done: 02/22/23 15:15 Discharge Date/Time: 02/22/23 15:21
[2023-02-22 08:04] LABS: MANUAL DIFF FLAG NO
[2023-02-22 08:11] LABS: Basophils Percent Auto 0.7 % (0-2); Eosinophils Absolute Auto 0.1 X10*3/uL (0.0-0.4); Eosinophils Percent Auto 1.9 % (0-4); Hematocrit 42.1 % (42.0-52.0); Hemoglobin 14.1 g/dl (14.0-18.0); Imm Gran Abs Auto 0.02 X10*3/uL (0.00-0.03); Imm Gran Pct Auto 0.3 % (0.0-0.4); Lymphocytes Percent Auto 33.8 % (20-40); Mean Corpuscular HGB Conc 33.5 g/dl (31.0-36.0); Mean Corpuscular Volume 95.7 fL (80.0-98.0); Mean Platelet Volume 9.5 fL (9.4-12.4); Monocytes Absolute Auto 0.4 X10*3/uL (0.1-1.2); Monocytes Percent Auto 7.5 % (2-11); Neutrophils Absolute Auto 3.3 x10*3/uL (2.0-8.3); Neutrophils Percent Auto 55.8 % (45-73); Platelet Count 178 X10*3/uL (160-400); Red Cell Distribution Width 13.2 % (11.0-16.0); White Blood Count 5.9 X10*3/uL (4.8-10.8)
[2023-02-22 08:14] LABS: Amphetamine Screen Urine Not Detected (Not Detect); Barbiturates, Urine Not Detected (Not Detect); Benzodiazepines Screen Urine Not Detected (Not Detect); Cannabinoid Screen Urine POSITIVE (Not Detect); Cocaine Screen Urine Not Detected (Not Detect); Fentanyl, urine POSITIVE (Not Detect); Opiate Screen Urine Not Detected (Not Detect); Phencyclidine Screen Urine Not Detected (Not Detect)
[2023-02-22 08:26] LABS: Alanine Aminotransferase 23 U/L (0-40); Albumin Level 4.4 g/dL (3.5-5.0); Alkaline Phosphatase 61 U/L (39-117); Anion Gap 9 (12-20); Aspartate Amino Transferase 24 U/L (5-37); Bilirubin Total 0.2 mg/dL (0.0-1.0); Blood Urea Nitrogen 10 mg/dL (9-16); C Reactive Protein 1.74 mg/dL (< or = 0.50); Calcium 9.1 mg/dL (8.4-10.2); Carbon Dioxide 32 mmol/L (22-29); Chloride 103 mmol/L (96-108); Creatinine Clr Calc Pharmacy 91.2; Estimated Glomerular Filt Rate > 60; Glucose Random 106 mg/dL (60-115); Lipase 14 U/L (8-78); Potassium 4.1 mmol/L (3.3-5.1); Sodium 140 mmol/L (135-145); Total Protein 7.2 g/dL (6.5-8.0)
[2023-02-22 08:31] LABS: Troponin-I High Sensitivity < 2.7 ng/L (<3.5-35.0)
[2023-02-22 08:32] VITALS: BP 123/78; PULSE 60; RESP 13; O2SAT 97
[2023-02-22 08:42] LABS: TSH reflex Free T4 0.72 uIU/mL (0.32-4.0)
[2023-02-22 08:48] LABS: Erythrocyte Sedimentation Rate 11 MM/HR (0-15)
--- NOTE | 2023-02-22 08:50 | PC.NURSE ---
Anna Marie (RN at [facility]) [phone] ext. #[phone] - called for status update on pt - states that she will be here at some point throughout the day and would like updates throughout day regarding updates/pt care.
[2023-02-22 10:19] LABS: D Dimer High Sensitivity 232 NG/ML
[2023-02-22] MEDS: 0.9 % Sodium Chloride 1,000 ML 999 ML IV (10:23)
[2023-02-22 10:27] VITALS: PULSE 60; RESP 17
[2023-02-22 11:00] LABS: Influenza A PCR NEGATIVE (Negative); Influenza B PCR NEGATIVE (Negative); Resp Syncy Virus RNA Qual PCR NEGATIVE (Negative); SARS COV2 PCR INHOUSE NEGATIVE (Negative)
[2023-02-22 12:43] VITALS: BP 152/66; PULSE 65; RESP 15; O2SAT 99
--- NOTE | 2023-02-22 13:45 | PC.NURSE ---
LATE ENTRY: PT C/O SHARP 10/10 L SIDED CHEST PAIN THAT RADIATES TO HIS L SIDE. HE SAID THE PAIN IS WORSE WHEN HE MOVES AND BETTER WHEN STILL. HE DENIED DYSPNEA/HEADACHE/.DIZZINESS. NO ABD PAIN. HE REPORTED THAT HE USED 1BAG OF HEROIN YESTERDAY, AND IS ON METHADONE, LAST DOSED 68 MG THIS MORNING. 20G IV INSERTED RAC, FLUIDS GIVEN. 1422: PT REQUESTED MEDICATION FOR ANXIETY, ATIVAN GIVEN DOCUMENTED.
[2023-02-22] MEDS: LORazepam 1 MG TABLET PO (13:56)
[2023-02-22 14:29] VITALS: BP 134/87; PULSE 62; RESP 18; O2SAT 99
== END 2023-02-22 15:21 | disposition home or self-care (01) ==
PROVIDERS: Physician Assistant Medical; Emergency Provider Emergency Medicine Emergency Medical Services; PCP Nurse Practitioner Family
DX: R07.89 Other chest pain (principal); R06.02 Shortness of breath; Z79.899 Other long term (current) drug therapy; Z20.822 Contact with and (suspected) exposure to COVID-19; Z20.828 Contact with and (suspected) exposure to other viral communicable diseases
CPT/HCPCS: 0241U; 36415; 71046; 71275; 80053; 80307; 83690; 83735; 84443; 84484; 85025; 85379; 85652; 86140; 93005; 96360; 96361; 99284; 99285; Q9967

== ENCOUNTER 2023-04-21 11:55 | Emergency (ER) | payer OTHER, SELFPAY ==
--- NOTE | ~2023-04-21 | XR_ITS ---
Examination: Chest and left knee. Clinical indications: Shortness of breath COMPARISON: Chest 02/22/2023. TECHNIQUE: Chest 2 views. Left knee 4 views. FINDINGS: Chest: The lungs are hyperinflated but clear of acute process. Heart size and pulmonary vascularity is normal. No gross bony abnormality seen. Left knee: The tricompartment joint space is narrowed. No visible acute fracture, dislocation or bony erosive changes seen. There are no enthesophytes or loose bodies. No joint effusion seen. The soft tissues are normal. XR/XR chest 2V IMPRESSION: 1. Unremarkable chest exam. 2. Mild arthritic changes left knee joint. No visible acute fracture, dislocation or subluxation seen.
--- NOTE | ~2023-04-21 | XR_ITS ---
Examination: Chest and left knee. Clinical indications: Shortness of breath COMPARISON: Chest 02/22/2023. TECHNIQUE: Chest 2 views. Left knee 4 views. FINDINGS: Chest: The lungs are hyperinflated but clear of acute process. Heart size and pulmonary vascularity is normal. No gross bony abnormality seen. Left knee: The tricompartment joint space is narrowed. No visible acute fracture, dislocation or bony erosive changes seen. There are no enthesophytes or loose bodies. No joint effusion seen. The soft tissues are normal. XR/XR knee LT 3V IMPRESSION: 1. Unremarkable chest exam. 2. Mild arthritic changes left knee joint. No visible acute fracture, dislocation or subluxation seen.
--- NOTE | ~2023-04-21 | US_ITS ---
EXAMINATION: US VENOUS ULTRASOUND WITH DOPPLER LOWER EXTREMITY, LEFT CLINICAL INFORMATION: Left lower extremity pain COMPARISON: Left leg DVT study 05/28/2016 TECHNIQUE: Ultrasound of the deep veins is performed from the hip to the calf with compression sonography and color and pulse Doppler assessment. Spectral analysis with color-flow imaging is performed. FINDINGS: There is normal venous compression and respiratory variation and augmented flow. The visualized common femoral vein, superficial femoral vein, profunda femoral vein, popliteal vein, and the trifurcation region shows no evidence of deep venous thrombosis. There is no significant popliteal fossa cyst. Contralateral right common femoral vein appears normal If the patient's symptoms persist, followup ultrasound in 5 days 7 days might be of value to exclude proximal propagation from a non-visualized calf vein. US/US venous duplex LE LT IMPRESSION: No DVT demonstrated in the left lower extremity.
[2023-04-21 12:21] VITALS: BP 147/87; PULSE 69; RESP 17; TEMP 36.9; O2SAT 98; BMI 16.8
--- NOTE | 2023-04-21 12:21 | ED.GENADULT ---
HPI - General Adult General Chief complaint: General Medical Stated complaint: SOB Time Seen by Provider: 04/21/23 14:34 Source: patient, RN notes reviewed and old records reviewed Mode of arrival: ambulatory History of Present Illness HPI narrative: 47-year-old male with a past medical history of COPD, asthma, opiate use disorder, presenting to the ED complaining of upper respiratory symptoms with dry cough, mild SOB, chest discomfort with coughing x last week. Admits was taking doxycycline which he had left over at home and ran out of. Also reports acute on chronic left knee pain, swelling, and popping sensation x weeks. Denies direct injury/trauma or fall. Reports pain radiated to left calf with tightness feeling. Denies fever, chills Related Data Previous Rx's Medication Instructions Recorded hydroxyzine pamoate 25 mg capsule 25 mg PO TID PRN itching 7 days 08/21/20 (Vistaril) #21 caps acetaminophen 500 mg tablet 500 mg PO Q6H PRN pain or fever 09/20/20 (Tylenol Extra Strength) #20 tabs buprenorphine 8 mg-naloxone 2 mg 1 film sublingual BID #14 ea 09/25/20 sublingual film ondansetron HCl 8 mg tablet 8 mg PO DAILY PRN for nausea #30 12/18/20 tabs naloxone 4 mg/actuation nasal spray 4 mg intranasal Q2M PRN opioid 05/04/21 overdose #2 ea prednisone 20 mg tablet 40 mg (2 x 20 mg) PO DAILY 5 days 05/04/21 #10 tabs prednisone 20 mg tablet 60 mg (3 x 20 mg) PO DAILY 5 days 05/20/21 #15 tabs montelukast 10 mg tablet 10 mg PO BEDTIME 90 days #90 tabs 07/15/21 aclidinium bromide 400 1 inh PO BID #1 insert 07/27/21 mcg/actuation breath activated powder inhaler (Tudorza Pressair) loratadine 10 mg tablet 10 mg PO DAILY 30 days #30 tabs 08/25/21 albuterol sulfate 90 mcg/actuation 2 puff inhalation Q6H PRN 12/16/21 aerosol inhaler shortness of breath or wheezing 30 days #8.5 grams baclofen 20 mg tablet 20 mg PO DAILY PRN muscle pain #30 01/15/22 tabs naproxen 500 mg tablet 500 mg PO BID PRN pain 10 days #20 10/14/22 tabs fluticasone propionate 50 1 spray intranasal BID 30 days #16 01/17/22 mcg/actuation nasal grams spray,suspension clonazepam 1 mg tablet 1 mg PO BID PRN anxiety 30 days 03/24/22 #60 tabs clonidine HCl 0.1 mg tablet 0.1 mg PO BEDTIME 30 days #30 tabs 03/24/22 gabapentin 100 mg capsule 200 mg (2 x 100 mg) PO TID 30 days 03/24/22 #180 caps albuterol sulfate 2.5 mg/3 mL 2.5 mg (3 mL) inhalation Q6H PRN 04/15/22 (0.083 %) solution for nebulization shortness of breath or wheezing 30 days #180 mL quetiapine 300 mg tablet 300 mg PO DAILY #90 tabs 04/15/22 levalbuterol HCl 1.25 mg/3 mL 1.25 mg (3 mL) inhalation TID PRN 04/29/22 solution for nebulization (Xopenex) shortness of breath or wheezing #90 mL indomethacin 25 mg capsule 25 mg PO Q6-8H PRN pain (scale 02/22/23 score 4-6) #20 caps albuterol sulfate 2.5 mg/0.5 mL 5 mg inhalation Q4H PRN shortness 04/21/23 solution for nebulization of breath or wheezing #30 ea albuterol sulfate 90 mcg/actuation 2 puff inhalation Q4-6H PRN 04/21/23 aerosol inhaler shortness of breath or wheezing #6.7 grams naproxen 500 mg tablet 500 mg PO BID PRN pain 10 days #20 04/21/23 tabs prednisone 20 mg tablet 40 mg (2 x 20 mg) PO DAILY 5 days 04/21/23 #10 tabs Allergies Allergy/AdvReac Type Severity Reaction Status Date / Time amoxicillin [AMOXICILLIN] AdvReac Intermediate NAUSEA & Verified 04/21/23 12:21 VOMITING clavulanic acid [Augmentin] AdvReac Intermediate Vomiting Verified 04/21/23 12:21 Review of Systems Review of Systems: Constitutional: No Fever, No Chills ENT/Mouth: No Ear Pain, No Nasal Congestion, No sore throat Cardiovascular: + Chest Pain, + SOB Respiratory: + Cough, No Sputum, No Wheezing Gastrointestinal: No Nausea, No Vomiting, No Abdominal pain Genitourinary: No Dysuria, No Urinary Frequency, No Hematuria Musculoskeletal: +joint pain, No Myalgias, + Joint Swelling Skin: No Skin Lesions, No rash Neuro: No Weakness, No Numbness, No Paresthesias Yes all other systems are reviewed and are negative Constitutional: Constitutional: Reports as per [facility] Past Medical History Attestation statement: The following information was validated with the patient. Source: old records reviewed Onset Date is defined in the Problem List Problems that require an onset date and time if occurred within 24 hrs of arrival to the ED Aortic Dissection and Rupture; Neurologic impairment; Cardiopulmonary Arrest; Endotracheal Intubation; Insertion or Replacement of Mechanical Circulatory Assist Device Medical History Back pain Leg pain Hypogonadism in male Chronic obstructive pulmonary disease (COPD) Asthma Opioid use disorder Surgical History History of surgery on arm Social History Social History Patient Tobacco Use Status: Never used Tobacco Substance Use Type: Heroin Advance Directives: No Physical Exam ED Vital Signs: Vital Signs - 24 hr 04/21/23 12:21 04/21/23 14:53 04/21/23 16:23 Temperature 98.4 F 97.9 F Pulse Rate 69 66 75 Respiratory Rate 17 22 H 16 Blood Pressure 147/87 H 112/73 Pulse Oximetry 98 Oxygen Delivery Method Room Air Room Air Oxygen Flow Rate 98 BMI result Body Mass Index 16.8 Const General: cooperative, healthy appearing and no acute distress Orientation/consciousness: patient oriented x3 Limitations: no limitations [facility] Head: Yes normal to inspection and Yes atraumatic Ears: hearing grossly normal bilaterally General nose exam: Normal external nose present Face and sinus: Yes normal facial exam Eyes General: appearance normal, both eyes and all related structures EOM: EOMs intact bilaterally Neck Neck: Yes normal visual inspection and Yes no meningeal signs Resp Effort & Inspection: normal respiratory effort and no respiratory distress Auscultation: wheezes expiratory wheezes and throughout Cardio Rate: regular rate Heart sounds: S1 normal heart sound present and S2 normal heart sound present Skin Rashes: no rashes Wounds: no wounds Neuro General: patient oriented x3, tone normal and no meningeal signs Cranial nerves: Yes CN's II-XII intact bilaterally Gait exam (Neuro): Normal gait present Extrem Other: Left knee with mild swelling. + diffusely tender greatest medial aspect. Full range of motion intact with some discomfort. Neurovascular intact distally. No LE pitting edema or calf tenderness. Achilles nontender Course Course Course Narrative: RME- 47-year-old male presents for evaluation of chest congestion, cough. He reports he was taking doxycycline for just over a week. This was not prescribed for this illness but he had left over from a separate encounter. He also endorses left knee pain, calf pain. He states the calf pain has been improving. Plan for viral swab, chest x-ray, left lower extremity ultrasound US venous duplex LE LT IMPRESSION: No DVT demonstrated in the left lower extremity. 1622--XR chest 2V/XR knee LT 3V IMPRESSION: 1. Unremarkable chest exam. 2. Mild arthritic changes left knee joint. No visible acute fracture, dislocation or subluxation seen. >1630--on re-evaluation after DuoNeb patient with increased/improved air movement, still mild residual end-expiratory wheeze appreciated (suspect this is his baseline) satting at 98-99% on RA, no respiratory distress, talking in complete sentences. Discussed with patient would like to prescribed p.o. prednisone outpatient as well as recommended diligence with neb machine and inhalers. Patient states he will not take prednisone unless he is also prescribed anxiolytic. Discussed with patient this is not indicated. Patient has history opiate use disorder. We will try to give 1 time dose of 60 mg of p.o. prednisone in the ED if patient is willing. Discussed worrisome signs and symptoms and strict return precautions >> patient refused PO Prednisone - Results discussed with patient including worrisome signs and symptoms and strict return precautions, and when to return to the emergency department. They verbalized understanding and feel safe for discharge at this time. Medications Administered Discontinued Medications Generic Name Dose Route Start Last Admin Trade Name Freq PRN Reason Stop Dose Admin Albuterol Sulfate 5 mg/ 0 mg 04/21/23 14:45 04/21/23 14:52 Albuterol/Ipratropium 3 ml INHALE 04/21/23 14:46 1 each ONCE ONE Administration Hydroxyzine HCl 25 mg 04/21/23 15:11 04/21/23 15:16 Hydroxyzine Hcl 25 Mg Tablet PO 04/21/23 15:12 25 mg ONCE ONE Administration Medical Decision Making Medical Decision Making [facility] Narrative: 47-year-old male with a past medical history of COPD, asthma, opiate use disorder, presenting to the ED complaining of upper respiratory symptoms with dry cough, mild SOB, chest discomfort with coughing x last week. Also reports acute on chronic left knee pain, swelling, and popping sensation x weeks. On exam vital signs stable, NAD, nontoxic appearing, physical exam as noted above with diffuse expiratory wheeze and left knee with mild swelling and tenderness. Concern for COPD exacerbation vs viral illness vs pneumonia/bronchitis. Lower suspicion for ACS/PE or DVT. Concern for left knee osteoarthritis vs tendinitis or ligamental/meniscal injury Plan: X-ray/ultrasound and viral testing ordered in triage. ED Bronch protocol Please refer to course for remaining clinical decision making, interpretation of labs/imaging results, and discussions with consultants and/or family members. Differential Diagnosis Differential Diagnoses: The differential diagnosis associated with the presentation includes As above Lab Data [facility] Lab Attestation statement: I reviewed the patient's lab results. Labs: Lab Results 04/21/23 Range/Units 13:39 COVID-19 ([facility]) Negative (Negative) COVID-19 Clin Com See Note Influenza Type A ([facility]) Negative (Negative) Influenza Type B ([facility]) Negative (Negative) Influenza A & B Note See Note Radiology Impression Discussion of test interpretation with radiology: I have reviewed the radiologist's reading. External Record Review External record reviewed: Inpatient record, Office record, Outpatient record, Prior outpatient labs, Prior outpatient radiology, Primary care record and Outside ED record Tests considered The following testing was considered but not selected: As above Prescription Management I considered prescription management with: Pain Medication Chronic Conditions Patient?s care impacted by: Other (COPD) Discharge Plan Discharge Clinical Impression: Bronchitis, Arthritis of knee Patient Disposition: Home, Self-Care Instructions: Osteoarthritis (DC), Acute Bronchitis (ED) Additional Instructions: Please continue to use your inhaler/machine and take prednisone as prescribed. Her x-ray does not show pneumonia, you likely have bronchitis Your x-ray of the knee shows knee arthritis. Please follow-up with orthopedics and your doctor for further management Take Tylenol and Motrin as needed for pain/swelling. Ice and elevate If symptoms persist or worsen return to the emergency department Prescriptions: New prednisone 20 mg tablet 40 mg PO DAILY 5 Days Qty: 10 0RF albuterol sulfate 90 mcg/actuation HFA aerosol inhaler 2 puff inhalation Q4-6H PRN (Reason: shortness of breath or wheezing) Qty: 6.7 0RF albuterol sulfate 2.5 mg/0.5 mL solution for nebulization 5 mg inhalation Q4H PRN (Reason: shortness of breath or wheezing) Qty: 30 0RF naproxen 500 mg tablet 500 mg PO BID PRN (Reason: pain) 10 Days Qty: 20 0RF No Action ondansetron HCl 8 mg tablet 8 mg PO DAILY PRN (Reason: for nausea) Qty: 30 0RF prednisone 20 mg tablet 40 mg PO DAILY 5 Days Qty: 10 0RF naloxone 4 mg/actuation spray,non-aerosol 4 mg intranasal Q2M PRN (Reason: opioid overdose) Qty: 2 0RF Rx Instructions: spray 1 dose into ONE nostril; alternate nostrils w each dose until help arrives montelukast 10 mg tablet 10 mg PO BEDTIME 90 Days Qty: 90 1RF Tudorza Pressair 400 mcg/actuation aerosol powdr breath activated 1 inh PO BID Qty: 1 2RF loratadine 10 mg tablet 10 mg PO DAILY 30 Days Qty: 30 4RF albuterol sulfate 90 mcg/actuation HFA aerosol inhaler 2 puff inhalation Q6H PRN (Reason: shortness of breath or wheezing) 30 Days Qty: 8.5 3RF baclofen 20 mg tablet 20 mg PO DAILY PRN (Reason: muscle pain) Qty: 30 5RF naproxen 500 mg tablet 500 mg PO BID PRN (Reason: pain) 10 Days Qty: 20 0RF fluticasone propionate 50 mcg/actuation spray,suspension 1 spray intranasal BID 30 Days Qty: 16 4RF Rx Instructions: administer into each nostril clonazepam 1 mg tablet 1 mg PO BID PRN (Reason: anxiety) 30 Days Qty: 60 0RF clonidine HCl 0.1 mg tablet 0.1 mg PO BEDTIME 30 Days Qty: 30 2RF gabapentin 100 mg capsule 200 mg PO TID 30 Days Qty: 180 2RF quetiapine 300 mg tablet 300 mg PO DAILY Qty: 90 0RF albuterol sulfate 2.5 mg /3 mL (0.083 %) solution for nebulization 2.5 mg inhalation Q6H PRN (Reason: shortness of breath or wheezing) 30 Days Qty: 180 1RF levalbuterol HCl [Xopenex] 1.25 mg/3 mL solution for nebulization 1.25 mg inhalation TID PRN (Reason: shortness of breath or wheezing) Qty: 90 0RF Rx Instructions: for up to 3 doses acetaminophen [Tylenol Extra Strength] 500 mg tablet 500 mg PO Q6H PRN (Reason: pain or fever) Qty: 20 0RF prednisone 20 mg tablet 60 mg PO DAILY 5 Days Qty: 15 0RF indomethacin 25 mg capsule 25 mg PO Q6-8H PRN (Reason: pain (scale score 4-6)) Qty: 20 0RF Rx Instructions: administer with food or milk hydroxyzine pamoate [Vistaril] 25 mg capsule 25 mg PO TID PRN (Reason: itching) 7 Days Qty: 21 0RF buprenorphine-naloxone 8-2 mg film 1 film sublingual BID Qty: 14 0RF Referrals: [facility] [place] [facility]geons [Provider Group] Miguel Ángel Crowell, DATA REPORTING ANALYST-BC [Primary Care Provider] -
[2023-04-21 14:13] LABS: COVID-19 Test Negative (Negative); IDNOW Serial# 08D9AD1C; IDNOW Serial# 152EDE1D; Influenza A Negative (Negative); Influenza B2 Negative (Negative)
[2023-04-21] MEDS: Albuterol Sulfate 5 MG, Albuterol/Iprat 2.5/0.5MG 3 ML 3 ML INHALE (14:52)
[2023-04-21 14:53] VITALS: PULSE 66; RESP 22; O2SAT 99
[2023-04-21] MEDS: hydrOXYzine HCL 25 MG TABLET PO (15:16)
[2023-04-21 16:23] VITALS: BP 112/73; PULSE 75; RESP 16; TEMP 36.6
== END 2023-04-21 16:38 | disposition home or self-care (01) ==
PROVIDERS: Physician Assistant; Emergency Provider Emergency Medicine; PCP Nurse Practitioner Family
DX: R06.02 Shortness of breath (principal); J40 Bronchitis, not specified as acute or chronic; R07.89 Other chest pain; R05.9 Cough, unspecified; M17.12 Unilateral primary osteoarthritis, left knee; R60.0 Localized edema; Z11.52 Encounter for screening for COVID-19; Z20.828 Contact with and (suspected) exposure to other viral communicable diseases; Z79.899 Other long term (current) drug therapy
CPT/HCPCS: 71046; 73562; 87502; 87635; 93971; 94640; 99283; 99284

== ENCOUNTER 2023-05-05 08:08 | Outpatient (AMB) | payer OTHER, SELFPAY ==
[2023-05-05 08:10] VITALS: BMI 16.7
--- NOTE | 2023-05-05 08:10 | A.OFFVIS_ITS ---
Intake Vital Signs 05/05/23 08:10 Height 5 ft 11 in Weight 120 lb BMI 16.7 Intake Visit Reasons: [employer]-left knee pain/swelling-ER follow up 04/21/23 Intake Note: Misha is a 47 year old Male who presents as a new patient with complaints of progressively worsening left knee pain and giving way. 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 He twisted his knee while carrying a heavy object down the stairs. Since that time his symptoms have gotten progressively worse. He was recently seen in the emergency room because of increased pain and swelling. He has done physical therapy exercises which aggravated his pain. Has also tried Tylenol and anti-inflammatory medicines which gave him minimal relief. He has tried wearing a knee brace which gives him only mild relief. He states that his left knee will give out over 20 times per day. Allergies amoxicillin [AMOXICILLIN] Adverse Reaction (Intermediate, Verified 05/05/23 08:16) NAUSEA & VOMITING clavulanic acid [Augmentin] Adverse Reaction (Intermediate, Verified 05/05/23 08:16) Vomiting Medication List - Last Reconciled 05/05/23 by Edgar Flores MD acetaminophen (Tylenol Extra Strength) 500 mg PO Q6H PRN aclidinium bromide 400 mcg/actuation (Tudorza Pressair) 1 inh PO BID albuterol sulfate 90 mcg/actuation 2 puffs inhalation Q4-6H PRN albuterol sulfate 5 mg inhalation Q4H PRN albuterol sulfate 90 mcg/actuation 2 puffs inhalation Q6H PRN 30 days albuterol sulfate 2.5 mg (3 mL) inhalation Q6H PRN 30 days baclofen 20 mg PO DAILY PRN buprenorphine-naloxone 8-2 mg 1 film sublingual BID clonazepam 1 mg PO BID PRN 30 days clonidine HCl 0.1 mg PO BEDTIME 30 days fluticasone propionate 50 mcg/actuation 1 spray intranasal BID 30 days gabapentin 200 mg (2 x 100 mg) PO TID 30 days hydroxyzine pamoate (Vistaril) 25 mg PO TID PRN 7 days indomethacin 25 mg PO Q6-8H PRN levalbuterol HCl (Xopenex) 1.25 mg (3 mL) inhalation TID PRN loratadine 10 mg PO DAILY 30 days montelukast 10 mg PO BEDTIME 90 days naloxone 4 mg/actuation 4 mg intranasal Q2M PRN naproxen 500 mg PO BID PRN 10 days naproxen 500 mg PO BID PRN 10 days ondansetron HCl 8 mg PO DAILY PRN prednisone 60 mg (3 x 20 mg) PO DAILY 5 days prednisone 40 mg (2 x 20 mg) PO DAILY 5 days prednisone 40 mg (2 x 20 mg) PO DAILY 5 days quetiapine 300 mg PO DAILY PFSH Medical History Back pain Leg pain Hypogonadism in male Chronic obstructive pulmonary disease (COPD) Asthma Opioid use disorder Surgical History History of surgery on arm Social History Patient Tobacco Use Status: Never used Tobacco Substance Use Type: Heroin Physical Exam Vital Signs: BMI result Body Mass Index 16.7 Const Other: Well-nourished well-developed very friendly male awake alert and oriented x3 in no acute distress Extrem Other: Bilateral lower extremity examination shows good capillary refill, no skin lesions noted, normal sensation light touch Left knee examination shows a minimal effusion, minimal crepitus with range of motion, tenderness along his medial joint line, positive Yancy's test, no instability Results Reviewed Results Reviewed: X-rays of the patient's left knee show minimal joint space narrowing, no acute bony abnormalities Assessment & Plan Assessment & Plan (1) Left knee pain: Code(s): M25.562 - Pain in left knee Plan Mr. Alexander presents with progressively worsening left knee pain and symptoms most likely due to a tear of his medial meniscus. Thus, I will send the patient for an MRI of his left knee for further evaluation. I will see him back once the MRI is completed to discuss the findings and treatment options. Feel free to call me at any time should questions regarding his orthopedic management arise. Thank you very much for asking me to see this very friendly gentleman. I spent 22 minutes in reviewing the patient's records and imaging studies, seeing the patient and documenting in the medical record. Orders: Orders MR knee LT wo con Today M25.562 - Pain in left knee Coding Level of Care Code New Pt Level 2 (75862) Diagnoses Left knee pain M25.562
== END 2023-05-05 08:27 | disposition home or self-care (01) ==
LOC: HO.HOS 08:08
PROVIDERS: PCP Nurse Practitioner Family; Visit Provider Orthopaedic Surgery
DX: M25.562 Pain in left knee (principal)
CPT/HCPCS: 99202

== ENCOUNTER → 2023-05-05 08:08 | Outpatient (BNVA) | payer OTHER, SELFPAY | PROVIDERS: PCP Nurse Practitioner Family; Visit Provider Orthopaedic Surgery | DX: M25.562 Pain in left knee (principal) | CPT/HCPCS: 99202 ==

== ENCOUNTER 2023-06-01 07:27 | Outpatient (REF) | payer OTHER, SELFPAY | END 2023-06-01 07:28 | disposition home or self-care (01) | LOC: HO.MRI 07:27 | PROVIDERS: PCP Nurse Practitioner Family; Visit Provider Orthopaedic Surgery | DX: Z13.89 Encounter for screening for other disorder (principal) ==

== ENCOUNTER 2023-07-26 08:31 | Outpatient (AMB) | payer OTHER, SELFPAY ==
[2023-07-26 08:36] VITALS: BMI 16.7
--- NOTE | 2023-07-26 08:36 | MHC.OFFVIS ---
Vital Signs 07/26/23 08:36 Height 5 ft 11 in Weight 120 lb BMI 16.7 Intake Visit Reasons: OV - Left Knee MRI Review (Ray) Intake Note: Misha is a 47 year old Male who presents with complaints of progressively worsening left knee pain and giving way. 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 He twisted his knee while carrying a heavy object down the stairs. Since that time his symptoms have gotten progressively worse. He was recently seen in the emergency room because of increased pain and swelling. He has done physical therapy exercises which aggravated his pain. Has also tried Tylenol and anti-inflammatory medicines which gave him minimal relief. He has tried wearing a knee brace which gives him only mild relief. He states that his left knee will give out over 20 times per day. Allergies amoxicillin [AMOXICILLIN] Adverse Reaction (Intermediate, Verified 07/26/23 08:37) NAUSEA & VOMITING clavulanic acid [Augmentin] Adverse Reaction (Intermediate, Verified 07/26/23 08:37) Vomiting Medication List - Last Reconciled 07/26/23 by Edgar Flores MD acetaminophen (Tylenol Extra Strength) 500 mg PO Q6H PRN aclidinium bromide 400 mcg/actuation (Tudorza Pressair) 1 inh PO BID albuterol sulfate 90 mcg/actuation 2 puffs inhalation Q4-6H PRN albuterol sulfate 5 mg inhalation Q4H PRN albuterol sulfate 90 mcg/actuation 2 puffs inhalation Q6H PRN 30 days albuterol sulfate 2.5 mg (3 mL) inhalation Q6H PRN 30 days baclofen 20 mg PO DAILY PRN buprenorphine-naloxone 8-2 mg 1 film sublingual BID clonazepam 1 mg PO BID PRN 30 days clonidine HCl 0.1 mg PO BEDTIME 30 days fluticasone propionate 50 mcg/actuation 1 spray intranasal BID 30 days gabapentin 200 mg (2 x 100 mg) PO TID 30 days hydroxyzine pamoate (Vistaril) 25 mg PO TID PRN 7 days indomethacin 25 mg PO Q6-8H PRN levalbuterol HCl (Xopenex) 1.25 mg (3 mL) inhalation TID PRN loratadine 10 mg PO DAILY 30 days montelukast 10 mg PO BEDTIME 90 days naloxone 4 mg/actuation 4 mg intranasal Q2M PRN naproxen 500 mg PO BID PRN 10 days naproxen 500 mg PO BID PRN 10 days naproxen 500 mg PO Q12H PRN ondansetron HCl 8 mg PO DAILY PRN prednisone 60 mg (3 x 20 mg) PO DAILY 5 days prednisone 40 mg (2 x 20 mg) PO DAILY 5 days prednisone 40 mg (2 x 20 mg) PO DAILY 5 days quetiapine 300 mg PO DAILY PFSH Medical History Back pain Leg pain Hypogonadism in male Chronic obstructive pulmonary disease (COPD) Asthma Opioid use disorder Surgical History History of surgery on arm Social History Patient Tobacco Use Status: Never used Tobacco Substance Use Type: Heroin Physical Exam Vital Signs: BMI result Body Mass Index 16.7 Const Other: Well-nourished well-developed very friendly male awake alert and oriented x3 in no acute distress Extrem Other: Bilateral lower extremity examination shows good capillary refill, no skin lesions noted, normal sensation light touch Left knee examination shows a minimal effusion, minimal crepitus with range of motion, tenderness along his medial joint line, positive Yancy's test, no instability Results Reviewed Results Reviewed: MRI of the patient's left knee shows minimal diffuse degenerative changes as well as a tear of the posterior horn of the medial meniscus Assessment & Plan Assessment & Plan (1) Left knee pain: Code(s): M25.562 - Pain in left knee Category: Medical Plan Mr. Alexander presents with progressively worsening left knee pain and mechanical symptoms due to a tear of his medial meniscus. I had a lengthy discussion with the patient regarding the treatment options. At this point he has failed continued non operative treatments. The risks and benefits of left knee arthroscopic surgery were discussed at length with the patient. The patient wishes to proceed with surgery. Does understand that he may not get 100% relief of his symptoms depending on the severity of his degenerative changes. Surgery will most likely involve left knee diagnostic arthroscopy with arthroscopic partial medial meniscectomy. The patient will be scheduled for next available date. He will be given a prescription for pain medicine at the time of his surgery. I did refill his prescription for naproxen. Feel free to call me at any time should questions regarding his orthopedic management arise. I spent 22 minutes in reviewing the patient's records and imaging studies, seeing the patient and documenting in the medical record. Medications: Refilled naproxen 500 mg PO Q12H PRN 60 tabs 3RF pain
== END 2023-07-26 08:59 | disposition home or self-care (01) ==
PROVIDERS: PCP Nurse Practitioner Family; Visit Provider Orthopaedic Surgery
DX: M25.562 Pain in left knee (principal)
CPT/HCPCS: 99214

== ENCOUNTER → 2023-07-26 08:31 | Outpatient (BNVA) | payer OTHER, SELFPAY | PROVIDERS: PCP Nurse Practitioner Family; Visit Provider Orthopaedic Surgery | DX: M25.562 Pain in left knee (principal) | CPT/HCPCS: 99212 ==

== ENCOUNTER 2023-08-26 06:10 | Day surgery (SDC) | payer OTHER, SELFPAY ==
[2023-08-24 09:36] VITALS: BMI 16.7
--- NOTE | 2023-08-25 08:53 | HO.ANESPROP2 ---
Documented by User: Crystal Ceballos NP 08/25/23 08:54 HPI - Anesthesia Eval Consult details Narrative: 47yo M for Left Knee Arthroscopy with partial medial menisecotmy, possible lateral minesectomy Suboxone 8mg BID PMFSH Active Problems Active Problems: All Active Problems Left knee pain (Acute) Opioid use disorder (Acute) Past Medical History Medical History Back pain Leg pain Hypogonadism in male Chronic obstructive pulmonary disease (COPD) Asthma Opioid use disorder Surgical History Surgical History History of surgery on arm Social History Social History Patient Tobacco Use Status: Never used Tobacco Substance Use Type: Former Substance User, Heroin and Marijuana Substance Use Type Other:: curently taking suboxone Substance Use Frequency: Chronic Longstanding Are you DNR?: No Advance Directives: No Advance Directives Information Provided: Yes Nutrition Risks: No Nutritional Risk Meds Allergies Allergy/AdvReac Type Severity Reaction Status Date / Time amoxicillin [AMOXICILLIN] AdvReac Intermediate NAUSEA & Verified 07/26/23 08:37 VOMITING clavulanic acid [Augmentin] AdvReac Intermediate Vomiting Verified 07/26/23 08:37 Home Medications ?Medication ?Instructions ?Recorded ?Confirmed ?Last Taken ?Type methadone 40 mg soluble tablet 120 mg PO DAILY 08/26/23 08/26/23 08/26/23 06:16 History Exam Height,Weight and Vital Signs: Height 5 ft 11 in Weight 54.431 kg Assessment and Plan Assessment Anesthesia Assessment: Chart Reviewed Documented by User: Cyrus Interiano MD 08/26/23 07:09 PMFSH Past Medical History Medical History Back pain Leg pain Hypogonadism in male Chronic obstructive pulmonary disease (COPD) Asthma Opioid use disorder Family History Family history of problems with anesthesia: No Surgical History Surgical History History of surgery on arm History of Problems with Anesthesia: No Social History Social History Patient Tobacco Use Status: Never used Tobacco Substance Use Type: Former Substance User, Heroin and Marijuana Substance Use Type Other:: curently taking suboxone Substance Use Frequency: Chronic Longstanding Are you DNR?: No Advance Directives: No Advance Directives Information Provided: Yes Nutrition Risks: No Nutritional Risk Meds Allergies Allergy/AdvReac Type Severity Reaction Status Date / Time amoxicillin [AMOXICILLIN] AdvReac Intermediate NAUSEA & Verified 07/26/23 08:37 VOMITING clavulanic acid [Augmentin] AdvReac Intermediate Vomiting Verified 07/26/23 08:37 Home Medications ?Medication ?Instructions ?Recorded ?Confirmed ?Last Taken ?Type methadone 40 mg soluble tablet 120 mg PO DAILY 08/26/23 08/26/23 08/26/23 06:16 History Exam Airway Mallampati Class: II TM Dist: >3cm Neck ROM: Full Denture: Upper and Lower Loose/Missing/Broken Teeth: Yes Heart: rrr Lungs: cta Assessment and Plan Final Anesthetic Review Family History of Problems with Anesthesia: No History of Problems with Anesthesia: No NPO: Yes ASA Class: II Final Preanesthetic Review: No Changes in Pt Med Stat, Meds/Allgs Chart Reviewed, Consent Obtained/Reviewed and Anes Risks/Benef Reviewed Patient Risk: Intermediate Procedure Risk: Low Anesthetic Plan Anesthetic Plan: GA Disposition: Standard PACU
[2023-08-26] VITALS (11 sets, daily range): BP systolic 100–146; BP diastolic 42–91; PULSE 51–81; RESP 12–18; TEMP 36.2–36.4; O2SAT 97–100; BMI 17.0
[2023-08-26] MEDS: Lactated Ringers 1,000 ML 100 ML IVCONT (06:46)
[2023-08-26] MEDS: Albuterol Sulfate (0.083%) 2.5 MG/3 ML VIAL.NEB INHALE (06:54)
--- NOTE | 2023-08-26 08:31 | P.BOP_ITS ---
Brief Operative Note Date of Service: 08/26/23 Pre-op diagnosis: Left knee medial meniscus tear, left knee arthritis Post-op diagnosis: other (Same as preoperative diagnoses as well as left knee lateral meniscus tear) Procedure: Left knee diagnostic arthroscopy with left knee arthroscopic partial medial and lateral meniscectomies, left knee arthroscopic chondroplasty of the undersurface of the patella and medial femoral condyle Implants: None Surgeon: Edgar Flores MD Anesthesia: GLMA Was an Commercial Designer used for this Procedure?: No Estimated blood loss (mL): 10 Pathology: none sent Condition: stable Disposition: PACU
--- NOTE | 2023-08-26 08:34 | W.PM.OPN ---
Operative Note Operative Note Date of Service: 08/26/23 Narrative: After the patient was identified as Misha Alexander and his left knee was initialed by myself they were brought to the operating room where general anesthesia was induced by the anesthesiologist in routine fashion. Because of the patient's allergy to penicillins he was given 900 mg of IV clindamycin preoperatively for infection prophylaxis. The patient's left lower extremity was prepped and draped in sterile fashion. A formal time-out was completed. Marcaine was injected into the planned incision sites as well as the patient's left knee joint. A #11 scalpel blade was used to make an anterolateral portal 1 cm proximal to the joint line and 1 cm lateral to the patellar tendon. Blunt trocar technique was used to enter the suprapatellar pouch with the knee in extension. Diagnostic arthroscopy showed multiple bands of thickened plica which would be excised at the end of the procedure. There were no loose bodies or abnormalities found in either the medial or lateral gutters. The articular surface of the patella showed diffuse grades 1 and 2 degenerative changes. The trochlear groove articular surface showed diffuse grade 1 degenerative changes. The patient's knee was flexed to 45 degrees and a valgus force was placed upon it. The medial compartment was entered. An anteromedial portal was made 1 cm proximal to the joint line and 1 cm medial to the patellar tendon. Probing of the medial meniscus showed a radial tear of the posterior horn. A partial medial meniscectomy was performed using the arthroscopic shaver. Following the partial meniscectomy the remainder of the meniscus tissue was stable. There were diffuse grades 1 and 2 degenerative changes of the medial femoral condyle as well as grades 1 degenerative changes of the medial tibial plateau. The articular surface of the medial femoral condyle was then made smooth using the arthroscopic shaver. The articular surface of the medial tibial plateau was already smooth so no chondroplasty was indicated. The patient's knee was placed into a neutral position. There was no injury to the anterior cruciate ligament. The patient's knee was then placed in the figure of 4 position and the lateral compartment was entered. There was a radial tear of the anterior horn of the lateral meniscus. Thus, a partial lateral meniscectomy was performed using the arthroscopic shaver. Following the partial meniscectomy the remainder of the meniscus tissue was stable. There were minimal degenerative changes of the lateral femoral condyle and lateral tibial plateau. The patient's knee was once again brought into extension and the suprapatellar pouch was entered. The arthroscopic shaver and the ArthroCare Wand were used to excise the thickened bands of plica. The undersurface of the patella was then made smooth using the arthroscopic shaver. The articular surface of the trochlear groove was already smooth so no chondroplasty was indicated. The knee joint was irrigated and then drained. All arthroscopic instruments were removed. The 2 portals were closed with 3-0 nylon interrupted suture. The knee joint was injected with Marcaine. Dry sterile dressing and Rory bandages were placed over the patient's knee. The patient was awoken and extubated in the operating room. The patient was transferred to the recovery room in stable condition.
[2023-08-26] MEDS: fentaNYL citrate/PF 100 MCG/2 ML VIAL 25 MCG IVPUSH ×4 (08:55→09:10)
== END 2023-08-26 10:00 | disposition home or self-care (01) ==
PROVIDERS: PCP Nurse Practitioner Family; Visit Provider Orthopaedic Surgery
PROC: (CPT 29870; principal; 2023-08-26 07:30)
DX: S83.242A Other tear of medial meniscus, current injury, left knee, initial encounter (principal); S83.282A Other tear of lateral meniscus, current injury, left knee, initial encounter; M25.562 Pain in left knee; X50.1XXA Overexertion from prolonged static or awkward postures, initial encounter; Y93.89 Activity, other specified; Y92.9 Unspecified place or not applicable; Y99.9 Unspecified external cause status; J44.9 Chronic obstructive pulmonary disease, unspecified; F11.20 Opioid dependence, uncomplicated; Z79.899 Other long term (current) drug therapy
CPT/HCPCS: 29880; 94640; J0131; J0171; J0736; J1100; J1885; J2250; J2405; J2704; J2795; J3010

== ENCOUNTER → 2023-08-26 06:10 | Outpatient (BNV) | payer OTHER, SELFPAY | PROVIDERS: PCP Nurse Practitioner Family; Visit Provider Orthopaedic Surgery | DX: S83.242A Other tear of medial meniscus, current injury, left knee, initial encounter (principal); S83.282A Other tear of lateral meniscus, current injury, left knee, initial encounter | CPT/HCPCS: 29880 ==

== ENCOUNTER 2023-09-08 13:47 | Outpatient (AMB) | payer OTHER, SELFPAY ==
--- NOTE | 2023-09-08 06:08 | A.OFFVIS_ITS ---
Intake Visit Reasons: PO LT knee 08/26/23 Intake Note: Misha a 47 year old male who presents today for a post operative visit s/p left knee on 08/26/23 Patient reports having soreness and tenderness. Difficulty with stair use however going down the stairs is worse. Current pain level is 7 out of 10. Allergies amoxicillin [AMOXICILLIN] Adverse Reaction (Intermediate, Verified 09/08/23 14:08) NAUSEA & VOMITING clavulanic acid [Augmentin] Adverse Reaction (Intermediate, Verified 09/08/23 14:08) Vomiting HPI HPI PO LT knee 08/26/23 DR: Details: 47-year-old male who returns to the office today for post-op left knee , 08/26/[address] Flores. He states he has soreness and tenderness in his knee and rates the pain as 7 on the scale of 0-10. He also experiences difficulty with going downstairs. He has no other concerns today. [facility] Medical History Back pain Leg pain Hypogonadism in male Chronic obstructive pulmonary disease (COPD) Asthma Opioid use disorder Surgical History History of surgery on arm Social History Patient Tobacco Use Status: Never used Tobacco Substance Use Type: Former Substance User, Heroin and Marijuana Review of Systems Const All systems reviewed & are unremarkable except as noted in HPI and below Physical Exam Extrem Other: Left knee: Incision clean, dry and intact. No redness or drainage. ROM is 5-95 degrees. Calf supple, nontender. NVI. Results Reviewed Results Reviewed: Brief Operative Note Date of Service: 08/26/23 Pre-op diagnosis: Left knee medial meniscus tear, left knee arthritis Post-op diagnosis: other (Same as preoperative diagnoses as well as left knee lateral meniscus tear) Procedure: Left knee diagnostic arthroscopy with left knee arthroscopic partial medial and lateral meniscectomies, left knee arthroscopic chondroplasty of the undersurface of the patella and medial femoral condyle Implants: None Surgeon: Edgar Flores MD Assessment & Plan Assessment & Plan (1) Patellofemoral arthritis of left knee: Code(s): M17.12 - Unilateral primary osteoarthritis, left knee Category: Medical (2) S/P arthroscopic partial medial meniscectomy: Code(s): Z98.890 - Other specified postprocedural states Category: Surgical Plan Sutures removed today, steri strips applied. He will begin a course of physical therapy to work on ROM, glute and quad strengthening exercises. He will avoid any type of deep bending, kneeling, twisting, pivoting, or squatting for the next 4-6 weeks, at which point he will see me back with Dr. Flores, sooner if needed. Orders: Orders PT Evaluation and Treatment Today M17.12 - Unilateral primary osteoarthritis, left knee, Z98.890 - Other specified postprocedural states Patient Instructions: Scribed for Cindy Thomas PA-C, by Dwight Brown director biomedical engineering, on 09/08/2023 at 1:30 PM EST.? I, Cindy Thomas PA-C, have personally reviewed and agree with the information entered by the scribe. Coding Level of Care Code Global (13708) Diagnoses Patellofemoral arthritis of left knee M17.12 S/P arthroscopic partial medial meniscectomy Z98.890
== END 2023-09-08 14:33 | disposition home or self-care (01) ==
LOC: HO.HOS 13:47
PROVIDERS: PCP Nurse Practitioner Family; Visit Provider Physician Assistant
DX: M17.12 Unilateral primary osteoarthritis, left knee (principal); Z98.890 Other specified postprocedural states
CPT/HCPCS: 99024

== ENCOUNTER → 2023-09-08 13:47 | Outpatient (BNVA) | payer OTHER, SELFPAY | PROVIDERS: PCP Nurse Practitioner Family; Visit Provider Physician Assistant | DX: M17.12 Unilateral primary osteoarthritis, left knee (principal); Z98.890 Other specified postprocedural states | CPT/HCPCS: 99212 ==

== ENCOUNTER 2023-11-16 09:23 | Outpatient (AMB) | payer OTHER, SELFPAY ==
--- NOTE | 2023-11-16 09:28 | MHC.OFFVIS ---
Intake Visit Reasons: PO LT knee 08/26/23 Intake Note: Misha is a 48 year old male who presents to the office today for PO LT knee 08/26/23 . The patient reports mild to moderate discomfort in his left knee. He denies any fevers or chills. He has taken naproxen which gives him mild relief. He denies any locking or giving way. Allergies amoxicillin [AMOXICILLIN] Adverse Reaction (Intermediate, Verified 11/16/23 09:28) NAUSEA & VOMITING clavulanic acid [Augmentin] Adverse Reaction (Intermediate, Verified 11/16/23 09:28) Vomiting Medication List - Last Reconciled 11/16/23 by Edgar Flores MD aclidinium bromide 400 mcg/actuation (Tudorza Pressair) 1 inh PO BID albuterol sulfate 90 mcg/actuation 2 puffs inhalation Q4-6H PRN albuterol sulfate 5 mg inhalation Q4H PRN fluticasone propionate 50 mcg/actuation 1 spray intranasal BID 30 days methadone 120 mg PO DAILY naloxone 4 mg/actuation 4 mg intranasal Q2M PRN naproxen 500 mg PO Q12H PRN PFSH Medical History Back pain Leg pain Hypogonadism in male Chronic obstructive pulmonary disease (COPD) Asthma Opioid use disorder Surgical History History of surgery on arm Social History Patient Tobacco Use Status: Never used Tobacco Substance Use Type: Former Substance User, Heroin and Marijuana Physical Exam Extrem Other: Left knee examination shows that the surgical incisions are well healed, no erythema, minimal crepitus with range of motion, mild discomfort with range of motion, no instability Assessment & Plan Assessment & Plan (1) Left knee pain: Code(s): M25.562 - Pain in left knee Category: Medical Plan Mr. Alexander continues to do fairly well after undergoing left knee arthroscopic surgery on 08/26/2023. He does have residual discomfort due to degenerative joint disease. At this point the patient's symptoms are tolerable to him. He will continue with his activity modifications. I will see him back in 2 months' time for repeat clinical examination. If he has continued discomfort at that time we will further discuss the risks and benefits of a cortisone injection. Feel free to call me at any time should questions regarding his orthopedic management arise. Medications: New meloxicam 15 mg PO DAILY PRN 30 tabs 2RF pain Discontinued naproxen Discontinued Reason: Doctor's Order 500 mg PO Q12H PRN 60 tabs 3RF pain Coding Level of Care Code Global (57563) Diagnoses Left knee pain M25.562
== END 2023-11-16 09:51 | disposition home or self-care (01) ==
PROVIDERS: PCP Nurse Practitioner Family; Visit Provider Orthopaedic Surgery
DX: M25.562 Pain in left knee (principal)
CPT/HCPCS: 99024

== ENCOUNTER → 2023-11-16 09:23 | Outpatient (BNVA) | payer OTHER, SELFPAY | PROVIDERS: PCP Nurse Practitioner Family; Visit Provider Orthopaedic Surgery | DX: Z09 Encounter for follow-up examination after completed treatment for conditions other than malignant neoplasm (principal); M17.12 Unilateral primary osteoarthritis, left knee | CPT/HCPCS: 99212 ==

== ENCOUNTER 2024-02-24 08:50 | Emergency (ER) | payer OTHER, SELFPAY ==
--- NOTE | ~2024-02-24 | XR_ITS ---
EXAMINATION: XR CHEST CLINICAL INFORMATION: cough/chest wall pain COMPARISON: Chest radiograph 04/21/2023. TECHNIQUE: Frontal view of the chest was obtained. FINDINGS: The lungs are hyperinflated. No focal consolidation. No pleural effusions or pneumothorax. The cardiac mediastinal silhouette is within normal limits. No acute osseous abnormality. XR/XR chest 1V IMPRESSION: Hyperinflated lungs. No acute pulmonary disease. Electronically signed by: Edgardo Arambula MD 02/24/2024 10:35 AM MANUEL
[2024-02-24 08:59] VITALS: BP 127/88; PULSE 67; RESP 16; TEMP 37.2; O2SAT 97; BMI 18.8
--- NOTE | 2024-02-24 09:11 | ED_ITS ---
HPI - URI/Sore Throat General Chief Complaint: Upper Respiratory Symptoms Stated Complaint: chest congestion Time Seen by Provider: 02/24/24 09:11 Source: patient Mode of arrival: ambulatory Limitations: no limitations History of Present Illness ED Provider: Paula Rascon NP HPI Narrative: patient is a 48-year-old male who presents to the emergency department for evaluation. He reports 2 weeks with a intermittently productive cough and a sensation of congestion in his chest. Admits to a history of asthma / COPD. States he has been using his albuterol inhaler as well as his nebulizer updrafts with some relief. He reports that [place] recently [place], and feels as though the change of location / environment have exacerbated his asthma. He states that while he was away he did take 3 days of prednisone, 30 mg daily but has not taken this in about a week. He had this medication left over from prior exacerbations. Denies fevers, chills, headache, dizziness, neck pain, neck stiffness, sore throat, nausea, vomiting, abdominal pain, numbness or tingling of the extremities, genitourinary symptoms. Related Data Home Medications ?Medication ?Instructions ?Recorded ?Confirmed methadone 40 mg soluble tablet 120 mg PO DAILY 08/26/23 11/16/23 Previous Rx's ?Medication ?Instructions ?Recorded naloxone 4 mg/actuation nasal spray 4 mg intranasal Q2M PRN opioid 05/04/21 overdose #2 ea aclidinium bromide 400 1 inh PO BID #1 insert 07/27/21 mcg/actuation breath activated powder inhaler (Tudorza Pressair) fluticasone propionate 50 1 spray intranasal BID 30 days #16 01/17/22 mcg/actuation nasal grams spray,suspension albuterol sulfate 2.5 mg/0.5 mL 5 mg inhalation Q4H PRN shortness 04/21/23 solution for nebulization of breath or wheezing #30 ea albuterol sulfate 90 mcg/actuation 2 puff inhalation Q4-6H PRN 04/21/23 aerosol inhaler shortness of breath or wheezing #6.7 grams meloxicam 15 mg tablet 15 mg PO DAILY PRN pain #30 tabs 11/16/23 prednisone 20 mg tablet 40 mg (2 x 20 mg) PO DAILY #10 tabs 02/24/24 Allergies Allergy/AdvReac Type Severity Reaction Status Date / Time amoxicillin [AMOXICILLIN] AdvReac Intermediate NAUSEA & Verified 02/24/24 09:00 VOMITING clavulanic acid [Augmentin] AdvReac Intermediate Vomiting Verified 02/24/24 09:00 Review of Systems Review of Systems: Yes all other systems are reviewed and are negative [facility] Past Medical History Attestation statement: The following information was validated with the patient. Source: old records reviewed Medical History Back pain Leg pain Hypogonadism in male Chronic obstructive pulmonary disease (COPD) Asthma Opioid use disorder Surgical History History of surgery on arm Social History Social History (Reviewed 09/08/23 @ 14:08 by Evelina Vigil [facility]) Patient Tobacco Use Status: Never used Tobacco Substance Use Type: Former Substance User, Heroin and Marijuana Advance Directives: No Advance Directives Information Provided: Yes Do you have a plan to hurt others: No Plan Physical Exam Vital Signs: Vital Signs: Last Vital Signs Temp 98.1 F 02/24/24 10:51 Pulse 56 02/24/24 10:51 Resp 16 02/24/24 10:51 BP 141/91 H 02/24/24 10:51 Pulse Ox 96 02/24/24 10:51 O2 Del Method Room Air 02/24/24 10:51 BMI result Body Mass Index 18.8 Appearance: Alert.?Oriented to person, place and time. No acute distress.?Normal affect. Eyes: Pupils equal, round and reactive to light.? ENT: TM normal bilaterally. Pharynx normal.?? Neck: Normal inspection.? Neck supple.??No cervical adenopathy CVS: Heart sounds normal. Normal heart rate and rhythm.? Pulses normal.?? Respiratory: No respiratory distress.? Lung sounds With mild expiratory wheezing bilaterally Abdomen: Soft and non-tender. Normoactive bowel sounds. Skin: Skin warm and dry.? Normal skin color.? ? Extremities: No lower extremity edema.? Neuro: Moves all extremities spontaneously. Sensation intact bilaterally. No motor deficits. Ambulates with normal steady gait. Medical Decision Making Medical Decision Making MDM Narrative: Patient is a 48-year-old male presenting to emergency department for evaluation of cough, congestion, and concern for asthma exacerbation. COVID-19/ influenza/RSV testing negative. At this time history and physical exam not consistent with ACS/PE. Given his duration of illness, chest x-ray was obtained to evaluate for pneumonia and is negative. overall he is well-appearing, nontoxic, afebrile, no tachycardia or tachypnea/hypoxia. Speaking clear full sentences, ambulatory with steady gait. no current respiratory distress, used his nebulizer prior to arrival to emergency department, does not feel he would benefit from an additional dosage in the emergency department. I have sent a prescription for prednisone to his pharmacy, to use in addition to his inhalers and nebulizers. Discussed conservative treatment including rest, hydration, Tylenol/ibuprofen as needed for fever and body aches, saline nasal spray, humidifier, ovtq-szq-nokgrds cold medication. Advised to follow-up with primary care provider as needed, discussed reasons to return back to the emergency department. All questions were answered. Patient discharged home in stable condition. Differential Diagnosis Differential Diagnoses: The differential diagnosis associated with the presentation includes ( See narrative above) Admission/Observation Consideration of admission/observation: Escalation of care including admission/observation considered ( see narrative above) Lab Data MDM Lab Attestation statement: I reviewed the patient's lab results. ( see narrative above) Labs: Lab Results 02/24/24 Range/Units 09:06 Influenza Type A (PCR) NEGATIVE (Negative) Influenza Type B (PCR) NEGATIVE (Negative) RSV RNA Qual (PCR) NEGATIVE (Negative) SARS-CoV-2 RNA (RT-PCR) NEGATIVE (Negative) Independent Interpretation I performed an independent interpretation of an: Plain X-Ray ( No consolidation or infiltrates) Radiology Impression Discussion of test interpretation with radiology: I have reviewed the radiologist's reading. Radiologist Impression: XR/XR chest 1V IMPRESSION: Hyperinflated lungs. No acute pulmonary disease. Prescription Management I considered prescription management with: Pain Medication ( acetaminophen/ibuprofen) Discharge Plan Discharge Clinical Impression: Asthma with COPD with exacerbation Patient Disposition: Home, Self-Care Instructions: COPD (Chronic Obstructive Pulmonary Disease) (ED) Additional Instructions: chest x-ray does not show evidence of pneumonia. Testing for COVID, flu, and RSV are negative. prescription for prednisone was sent to your pharmacy, please complete the entire course as prescribed, take a daily with food to prevent stomach upset. Be sure to rest, stay well hydrated drinking plenty of fluids, eat small frequent meals. Tylenol can be used as needed for fever/pain. Wtse-qtq-uanyrom cold medications may be helpful as well for symptoms. Saline nasal spray, humidifier may be helpful for nasal congestion. You may return to the emergency department with any new or worsening symptoms or concerns. Follow-up with your primary care provider as needed. Prescriptions: New prednisone 20 mg tablet 40 mg PO DAILY Qty: 10 0RF No Action naloxone 4 mg/actuation spray,non-aerosol 4 mg intranasal Q2M PRN (Reason: opioid overdose) Qty: 2 0RF Rx Instructions: spray 1 dose into ONE nostril; alternate nostrils w each dose until help arrives Tudorza Pressair 400 mcg/actuation aerosol powdr breath activated 1 inh PO BID Qty: 1 2RF fluticasone propionate 50 mcg/actuation spray,suspension 1 spray intranasal BID 30 Days Qty: 16 4RF Rx Instructions: administer into each nostril albuterol sulfate 90 mcg/actuation HFA aerosol inhaler 2 puff inhalation Q4-6H PRN (Reason: shortness of breath or wheezing) Qty: 6.7 0RF albuterol sulfate 2.5 mg/0.5 mL solution for nebulization 5 mg inhalation Q4H PRN (Reason: shortness of breath or wheezing) Qty: 30 0RF methadone 40 mg Tablet,Soluble 120 mg PO DAILY meloxicam 15 mg tablet 15 mg PO DAILY PRN (Reason: pain) Qty: 30 2RF Referrals: Miguel Ángel Crowell, [employer] [Primary Care Provider] - Interventions: ED Discharge Assessment Last Done: 02/24/24 10:51 Discharge Date/Time: 02/24/24 10:51 Print Language: Swazi
[2024-02-24 10:02] LABS: Influenza A PCR NEGATIVE (Negative); Influenza B PCR NEGATIVE (Negative); Resp Syncy Virus RNA Qual PCR NEGATIVE (Negative); SARS COV2 PCR INHOUSE NEGATIVE (Negative)
[2024-02-24 10:46] VITALS: BP 141/91; PULSE 56; RESP 16; TEMP 36.7; O2SAT 96
[2024-02-24 10:51] VITALS: BP 141/91; PULSE 56; RESP 16; TEMP 36.7; O2SAT 96
== END 2024-02-24 10:51 | disposition home or self-care (01) ==
PROVIDERS: Emergency Provider Emergency Medicine; PCP Nurse Practitioner Family
DX: J44.1 Chronic obstructive pulmonary disease with (acute) exacerbation (principal); Z03.818 Encounter for observation for suspected exposure to other biological agents ruled out; R05.9 Cough, unspecified; Z79.899 Other long term (current) drug therapy
CPT/HCPCS: 0241U; 71045; 99283

== ENCOUNTER 2024-03-07 08:00 | Emergency (ER) | payer OTHER, SELFPAY ==
[2024-03-07 08:05] VITALS: BP 137/94; PULSE 68; RESP 18; TEMP 37; O2SAT 98; BMI 17.2
[2024-03-07 08:53] LABS: Appearance Urine Error; Color Urine Yellow; Glucose Urine UA Negative (Negative); Leukocyte Esterase Urine Negative (Negative); Nitrite Urine Negative (Negative); Urine Blood Negative (Negative); Urine Ketones Trace mg/dL (Negative); Urine Protein Negative (Neg-Trace)
--- NOTE | 2024-03-07 09:00 | ED_ITS ---
HPI - Male Genitourinary General Chief complaint: Urogenital-Male Stated complaint: urine retention Time Seen by Provider: 03/07/24 09:00 History of Present Illness ED Provider: Beto SALGUERO Narrative: The patient is a 48-year-old male who has been having to provide weakly urine samples for drug testing because of probation. Over the last few weeks he has been having greater and greater difficulty urinating to provide a sample when he goes to the probation office. He had an appointment yesterday and was essentially unable to void at all. The probation office therefore did an oral swab instead. The patient comes to the emergency room because he is concerned that he has been unable to void on command at the probation office. He says that when he is home he also has some difficulty emptying his bladder and often feels that he has to go back to the bathroom several times to completely empty his bladder. He has no dysuria, urgency, or frequency. No fever, sweats, chills. No flank pain. No nausea or vomiting. The patient also has a history of asthma and he feels that he is wheezing a lot. Related Data Home Medications ?Medication ?Instructions ?Recorded ?Confirmed methadone 40 mg soluble tablet 120 mg PO DAILY 08/26/23 11/16/23 Previous Rx's ?Medication ?Instructions ?Recorded naloxone 4 mg/actuation nasal spray 4 mg intranasal Q2M PRN opioid 05/04/21 overdose #2 ea aclidinium bromide 400 1 inh PO BID #1 insert 07/27/21 mcg/actuation breath activated powder inhaler (Tudorza Pressair) fluticasone propionate 50 1 spray intranasal BID 30 days #16 01/17/22 mcg/actuation nasal grams spray,suspension albuterol sulfate 2.5 mg/0.5 mL 5 mg inhalation Q4H PRN shortness 04/21/23 solution for nebulization of breath or wheezing #30 ea albuterol sulfate 90 mcg/actuation 2 puff inhalation Q4-6H PRN 04/21/23 aerosol inhaler shortness of breath or wheezing #6.7 grams prednisone 20 mg tablet 40 mg (2 x 20 mg) PO DAILY #10 tabs 02/24/24 meloxicam 15 mg tablet 15 mg PO DAILY PRN pain #30 tabs 03/05/24 prednisone 20 mg tablet 40 mg (2 x 20 mg) PO DAILY 4 days 03/07/24 #8 tabs Allergies Allergy/AdvReac Type Severity Reaction Status Date / Time amoxicillin [AMOXICILLIN] AdvReac Intermediate NAUSEA & Verified 03/07/24 08:08 VOMITING clavulanic acid [Augmentin] AdvReac Intermediate Vomiting Verified 03/07/24 08:08 Review of Systems Review of Systems: Yes all other systems are reviewed and are negative [facility] Past Medical History Medical History Back pain Leg pain Hypogonadism in male Chronic obstructive pulmonary disease (COPD) Asthma Opioid use disorder Surgical History History of surgery on arm Social History Social History Patient Tobacco Use Status: Never used Tobacco Substance Use Type: Former Substance User, Heroin and Marijuana Advance Directives: No Advance Directives Information Provided: Yes Do you have a plan to hurt others: No Plan Physical Exam Vital Signs: Vital Signs: Last Vital Signs Temp 98.6 F 03/07/24 09:47 Pulse 68 03/07/24 09:47 Resp 18 03/07/24 09:47 BP 137/94 H 03/07/24 09:47 Pulse Ox 98 03/07/24 09:47 O2 Del Method Room Air 03/07/24 09:47 BMI result Body Mass Index 17.2 Const: Other: The patient is a slim 48-year-old man. He is awake and alert. He does not appear in any distress. HEENT: Head: Yes normal to inspection Face and sinus: Yes normal facial exam Mouth: Normal oral and palatal mucosa present and moist mucous membranes Eyes: General: appearance normal, both eyes and all related structures Neck: Neck: Yes full ROM Resp: Other: There is no increased work of breathing but the patient has inspiratory and expiratory wheezes bilaterally and symmetrically. Cardio: Rate: regular rate Rhythm: regular rhythm Heart sounds: S1 normal heart sound present and S2 normal heart sound present GI: Other: Abdomen is soft and nontender. No suprapubic fullness. : General: Yes no CVA tenderness Back/Spine/Pelvis: Back: no CVA tenderness Skin: Other: Skin is dry and unremarkable Neuro: Other: the patient is awake and alert with normal mental status. Cranial nerves are intact. He moves his extremities normally and appropriately. He has normal gait. He seems neurologically intact. Extrem: Other: No peripheral edema Medications Administered Discontinued Medications Generic Name Dose Route Start Last Admin Trade Name Cristi PRN Reason Stop Dose Admin Prednisone 60 mg 03/07/24 09:17 03/07/24 09:41 Prednisone 20 Mg Tablet PO 03/07/24 09:18 60 mg ONCE ONE Administration Medical Decision Making Medical Decision Making [facility] Narrative: the patient is a 48-year-old male who presents for evaluation of difficulty urinating. This occurs primarily when he needs to give a legally mandatory urine sample for drug testing. Here the patient has an unremarkable urinalysis. He has no postvoid residual. He looks entirely well. I suspect that his difficulty in being able to urinate when he needs to provide a sample for probation is essentially a form of performance anxiety. The patient was reassured that he seems to be able to empty his bladder well.The patient is advised that he may follow-up with urology if he wishes to discuss this further. The patient also complained of ongoing wheezing and requested a prescription for prednisone. He had wheezing on exam. He was prescribed a 5 day course of prednisone. He should follow up with his PCP. Lab Data Labs: Lab Results 03/07/24 Range/Units 08:26 Urine Color Yellow Urine Appearance Error Urine pH 6.0 (5.0-9.0) Ur Specific [place] 1.020 (1.005-1.025) Urine Protein Negative (Neg-Trace) mg/dL Urine Glucose (UA) Negative (Negative) mg/dL Urine Ketones Trace (Negative) mg/dL Urine Blood Negative (Negative) Urine Nitrite Negative (Negative) Ur Leukocyte Esterase Negative (Negative) Discharge Plan Discharge Clinical Impression: Difficulty urinating, Asthma Patient Disposition: Home, Self-Care Additional Instructions: Your urine testing today shows no sign of infection or other problem. You seemed to have completely emptied your bladder today. You are not retaining urine. I suspect that your difficulty in providing urine samples on demand may be some kind of performance anxiety. This is not uncommon. If you wish to pursue your difficulty urinating further you should be seen by a urologist. You have been given the contact information for the [place] [facility] office. With regard here asthma you were given a dose of prednisone here in the emergency room. The prescription has been sent to your pharmacy for additional prednisone over the next 4 days. Please take this medication once a day. Next dose tomorrow. Please contact your regular doctor's office for an appointment to discuss your asthma as well. Return to the emergency room if worse. Prescriptions: New prednisone 20 mg tablet 40 mg PO DAILY 4 Days Qty: 8 0RF No Action naloxone 4 mg/actuation spray,non-aerosol 4 mg intranasal Q2M PRN (Reason: opioid overdose) Qty: 2 0RF Rx Instructions: spray 1 dose into ONE nostril; alternate nostrils w each dose until help arrives Tudorza Pressair 400 mcg/actuation aerosol powdr breath activated 1 inh PO BID Qty: 1 2RF fluticasone propionate 50 mcg/actuation spray,suspension 1 spray intranasal BID 30 Days Qty: 16 4RF Rx Instructions: administer into each nostril meloxicam 15 mg tablet 15 mg PO DAILY PRN (Reason: pain) Qty: 30 2RF albuterol sulfate 90 mcg/actuation HFA aerosol inhaler 2 puff inhalation Q4-6H PRN (Reason: shortness of breath or wheezing) Qty: 6.7 0RF albuterol sulfate 2.5 mg/0.5 mL solution for nebulization 5 mg inhalation Q4H PRN (Reason: shortness of breath or wheezing) Qty: 30 0RF methadone 40 mg Tablet,Soluble 120 mg PO DAILY prednisone 20 mg tablet 40 mg PO DAILY Qty: 10 0RF Referrals: [facility] [Provider Group] (Difficulty voiding) Miguel Ángel Crowell, [employer] [Primary Care Provider] - (asthma, difficulty voiding) Stand Alone Forms: Work/School Release Interventions: ED Discharge Assessment Last Done: 03/07/24 09:47 Discharge Date/Time: 03/07/24 09:47 Print Language: Armenian
[2024-03-07] MEDS: predniSONE 20 MG TABLET 60 MG PO (09:41)
[2024-03-07 09:47] VITALS: BP 137/94; PULSE 68; RESP 18; TEMP 37; O2SAT 98
== END 2024-03-07 09:47 | disposition home or self-care (01) ==
PROVIDERS: Emergency Provider Emergency Medicine; PCP Nurse Practitioner Family
DX: R33.9 Retention of urine, unspecified (principal); J45.909 Unspecified asthma, uncomplicated; F11.20 Opioid dependence, uncomplicated; Z79.899 Other long term (current) drug therapy
CPT/HCPCS: 81003; 99282; 99283

== ENCOUNTER 2024-06-01 08:09 | Outpatient (AMB) | payer OTHER, SELFPAY ==
--- NOTE | 2024-06-01 08:25 | AM.OFFWIN_ITS ---
Intake Vital Signs 06/01/24 08:27 Weight 120 lb BP 116/70 Blood Pressure Location Rt brachial Position Sitting Pulse 83 Pulse Source Pulse Oximeter Temp 100.3 F Temp Source Oral Pulse Oximetry (%) 93 Oxygen Delivery Method Room Air Intake Visit Reasons: EP Flu symptoms/chest cold, headache Intake Note: Patient here for cough, headaches, mid-lower back pain, fevers which started about 5 days ago. Patient Tobacco Use Status: Never used Tobacco Allergies amoxicillin [AMOXICILLIN] Adverse Reaction (Intermediate, Verified 06/01/24 08:28) NAUSEA & VOMITING clavulanic acid [Augmentin] Adverse Reaction (Intermediate, Verified 06/01/24 08:28) Vomiting HPI HPI Comments History of Present Illness Details This is a 48-year-old male past medical history significant for chronic obstructive pulmonary disease who presented to the walk-in clinic with concerns for a respiratory infection. Patient states his symptoms started with nasal congestion and rhinorrhea and sinus pain/pressure about 1 week ago, although these have improved. He states he continues to have a ?throbbing? headache. Patient states that he then started to develop chest congestion and a productive cough with light brown to yellow sputum. He also reports subjective fever/chills yesterday and last night although did not take his temperature. He also reports ear pressure but denies any ear pain. He also reports a sore throat and swollen lymph nodes. Of note, patient reports positive sick contact with his aunt/uncle and cousin, who is currently admitted to the hospital with pneumonia. He also reports positive sick contact with his sister, who tested positive for RSV. [facility] Medical History Back pain Leg pain Hypogonadism in male Chronic obstructive pulmonary disease (COPD) Asthma Opioid use disorder Surgical History History of surgery on arm Social History Patient Tobacco Use Status: Never used Tobacco Substance Use Type: Former Substance User, Heroin and Marijuana Review of Systems Const All systems reviewed & are unremarkable except as noted in HPI and below Reports no additional complaints Eyes Reports no additional complaints ENT Reports no additional complaints Card Reports no additional complaints Resp Reports no additional complaints GI Reports no additional complaints Reports no additional complaints Musc Reports no additional complaints Skin/Breast Reports system reviewed and no additional complaints, except as documented Neuro Reports no additional complaints Psych Reports no additional complaints Endo Reports no additional complaints [place]/Lymph Reports no additional complaints Aller/Immun Reports no additional complaints Physical Exam Vital Signs: Last Vital Signs Temp 100.3 F 06/01/24 08:27 Pulse 83 06/01/24 08:27 BP 116/70 06/01/24 08:27 Pulse Ox 93 06/01/24 08:27 Oxygen Delivery Method Room Air 06/01/24 08:27 Const Other: Vital signs reviewed. Constitutional: Non-toxic appearing. No acute distress. Well-developed and well-nourished. HEENT: Normocephalic and atraumatic. Tympanic membranes without erythema, edema, or bulging bilaterally. External auditory canals without erythema or edema bilaterally. Moist mucous membranes. Mild posterior pharyngeal erythema without exudates, edema, or tonsillar hypertrophy. + Maxillary sinus tenderness to palpation. Skin: Warm and dry. No rashes or lesions noted. Neck: Full and painless range of motion. + Boggy anterior cervical lymphadenopathy. Cardio: Regular rate and rhythm. No murmurs, gallops, or rubs. No lower extremity edema. No JVD. Pulmonary: No respiratory distress. No accessory muscle usage. Patient has significant rhonchi and expiratory wheezing throughout both lungs. Gastrointestinal: Soft, nontender, and nondistended in all 4 quadrants. Musculoskeletal: Normal range of motion in joints throughout the body. No deformity or other signs of injury. Neuro: Alert and oriented x4. Cranial nerves 2-12 grossly intact. No focal deficits appreciated. Psych: Normal mood and affect. Office Procedures Nebulizer Treatment Nebulizer Treatment 72109-Guljicluv/MDI RX initial, or Nebulizer Subsequent Treatment Office Meds ipratropium 0.5 mg-albuterol 3 mg (2.5 mg base)/3 mL nebulization soln Performing Provider: CARLEY Ruby Performing Location: [facility] [place] [facility] Administered by: Joanna Long RN on 06/01/24 08:57 Dose Route Admin Location Dispensed Lot Number Expiration Date NDC Arranging [employer] Director 3 mL inhalation 3 mL [id number] 06/01/25 17888-101-82 AHP Results AMB Rapid Strep AMB Rapid Strep Negative Last Edit by DWIGHT Mcintyre on 06/01/24 09:25 Assessment & Plan Assessment & Plan (1) Acute upper respiratory infection, unspecified: Code(s): J06.9 - Acute upper respiratory infection, unspecified (2) Acute bronchitis: Code(s): J20.9 - Acute bronchitis, unspecified Qualifiers: Bronchitis organism: unspecified organism Qualified Code(s): J20.9 - Acute bronchitis, unspecified Plan This is a 48-year-old male with past medical history significant for chronic obstructive pulmonary disease who presented to the walk-in clinic with sinus pain/pressure, chest congestion, cough, and fevers. On physical examination, patient has significant rhonchi and expiratory wheezing throughout both lungs, mild posterior pharyngeal erythema, maxillary sinus tenderness to palpation, and boggy anterior cervical lymphadenopathy. History and physical most consistent with acute lower respiratory tract infection, possibly atypical/walking pneumonia, and acute bronchitis/acute COPD exacerbation. COVID/flu/RSV sent. Patient was given a DuoNeb in office with significant improvement in his symptoms and lung sounds. He was given p.o. azithromycin 500 mg today followed by 250 mg daily x4 days as well as p.o. prednisone 40 mg x 5 days. He was also given a refill on his albuterol inhaler. I recommended symptomatic management including rest, increased fluids, advil/tylenol for pain/fever, humidification at nighttime, and over the counter throat lozenges/decongestants. Patient advised to follow up here or go to the emergency room for worsening/persistent symptoms. Patient verbalized understanding and is agreeable with the plan. Orders: Orders SARS-CoV2/FLU/RSV Today J06.9 - Acute upper respiratory infection, unspecified AMB Nebulizer Treatment Today J20.9 - Acute bronchitis, unspecified Medications: New prednisone 40 mg (2 x 20 mg) PO DAILY 10 tabs 0RF azithromycin For 250 mg dose pack: take 500 mg today (day 1), then 250 mg for 4 days (days 2-5) PO 6 tabs 0RF Refilled albuterol sulfate 90 mcg/actuation 2 puffs inhalation Q4-6H PRN 6.7 grams 0RF shortness of breath or wheezing Coding Level of Care Code Est Pt Level 3 (71581) Diagnoses Acute upper respiratory infection, unspecified J06.9 Acute bronchitis, unspecified organism J20.9 Bronchitis organism: unspecified organism CPT Codes Nebulizer Treatment - Nebulizer Treatment, initial or subsequent: 40234- Nebulizer/MDI RX initial, or Nebulizer Subsequent Treatment ([id number])
[2024-06-01 08:27] VITALS: BP 116/70; PULSE 83; TEMP 37.9; O2SAT 93
== END 2024-06-01 09:49 | disposition home or self-care (01) ==
PROVIDERS: PCP Nurse Practitioner Family; Visit Provider Physician Assistant Medical
DX: J06.9 Acute upper respiratory infection, unspecified (principal); J20.9 Acute bronchitis, unspecified; Z13.9 Encounter for screening, unspecified

== ENCOUNTER 2024-06-01 08:09 | Outpatient (REF) | payer OTHER, SELFPAY ==
[2024-06-01 12:31] LABS: Influenza A PCR POSITIVE (Negative); Influenza B PCR NEGATIVE (Negative); Resp Syncy Virus RNA Qual PCR NEGATIVE (Negative); SARS COV2 PCR INHOUSE NEGATIVE (Negative)
== END 2024-06-01 08:10 | disposition home or self-care (01) ==
LOC: HO.LNP 08:09
PROVIDERS: PCP Nurse Practitioner Family; Visit Provider Physician Assistant Medical
DX: J06.9 Acute upper respiratory infection, unspecified (principal)
CPT/HCPCS: 0241U; 87880; 94640; 99212

== ENCOUNTER 2024-12-31 08:16 | Outpatient (REF) | payer OTHER, SELFPAY ==
--- NOTE | ~2024-12-31 | XR_ITS ---
EXAMINATION: XR CHEST CLINICAL INFORMATION: R05.9 - Cough, unspecified COMPARISON: February 24, 2024. TECHNIQUE: PA and lateral views FINDINGS: Hyperinflated lungs. No consolidation, pleural effusion or pneumothorax. Cardiomediastinal silhouette size is small. Mild S-shaped curvature of the mid thoracic spine. Mild multilevel thoracic spondylosis. XR/XR chest 2V IMPRESSION: Hyperinflated lungs without acute airspace disease. Electronically signed by: Brennon Josue MD 12/31/2024 09:09 AM EDT
== END 2024-12-31 08:17 | disposition home or self-care (01) ==
LOC: HO.HMGCX 08:16
PROVIDERS: PCP Nurse Practitioner Family; Visit Provider Physician Assistant Medical
DX: R05.9 Cough, unspecified (principal); R06.02 Shortness of breath; Z79.899 Other long term (current) drug therapy
CPT/HCPCS: 71046; 99212

== ENCOUNTER 2024-12-31 08:16 | Outpatient (AMB) | payer OTHER, SELFPAY ==
--- NOTE | 2024-12-31 08:21 | AM.OFFWIN_ITS ---
Intake Vital Signs 12/31/24 08:22 Height 5 ft 11 in BP 122/82 Blood Pressure Location Lt brachial Position Sitting Pulse 78 Pulse Source Pulse Oximeter Temp 98.3 F Temp Source Oral Pulse Oximetry (%) 98 Oxygen Delivery Method Room Air Intake Visit Reasons: ep pain lungs sob when laying down Patient Tobacco Use Status: Never used Tobacco Allergies amoxicillin (AMOXICILLIN) Adverse Reaction (Intermediate, Verified 12/31/24 08:22) NAUSEA & VOMITING clavulanic acid (Augmentin) Adverse Reaction (Intermediate, Verified 12/31/24 08:22) Vomiting Do you need a note to return to daycare/school/sports/work: Yes HPI HPI Comments History of Present Illness Details History of Present Illness - The patient is a 49-year-old male pres enting with pain in the left lung and SOB. - He has a history of COPD and bronchiti s, with exacerbations linked to weather changes, managed with albuterol and prednisone. - He states that he gets an exacerbation of COPD and bronchitis when he goes away. - The patient has a 4-mm lung nodule, wi th follow-up disrupted by the COVID-19 pandemic. - He experiences anxiety and panic attac ks, possibly related to his respiratory issues. - He has no cough. - He has not been having wheezing as he is using his inhaler and nebulizer at home. - He denies sick contacts. - He denies abd pain, n/v/d, BISHOP, sore th roat, or ear pain. Physical Exam General: Cooperative, healthy appearing, comfortable, no acute distress and well developed Orientation: Patient oriented x3 Limitations: No limitations Head: Normal to inspection Ears: Hearing grossly normal bilaterally Nose: Normal external nose present Face and sinus: Normal facial exam Eyes: Appearance normal, both eyes and all related structures Neck: Normal visual inspection and Yes full ROM. No lymphadenopathy noted. Respiratory: Normal respiratory effort and able to speak in complete sentences. Clear to auscultation bilaterally. No w/r/r noted. Cardiovascular: Regular rate and rhythm. Normal S1 and S2. No m/r/g noted. Skin: No rashes or lesions noted Extremities: Normal to inspection. No edema noted. Patient was informed and verbally consented to the use of an ambient scribe for clinic note documentation during this visit. [facility] Medical History Back pain Leg pain Hypogonadism in male Chronic obstructive pulmonary disease (COPD) Asthma Opioid use disorder Surgical History History of surgery on arm Social History (Reviewed 09/08/23 @ 14:08 by Evelina Vigil [facility]) Patient Tobacco Use Status: Never used Tobacco Substance Use Type: Former Substance User, Heroin and Marijuana Review of Systems Const All systems reviewed & are unremarkable except as noted in HPI and below Physical Exam Vital Signs: Last Vital Signs Temp 98.3 F 12/31/24 08:22 Pulse 78 12/31/24 08:22 BP 122/82 12/31/24 08:22 Pulse Ox 98 12/31/24 08:22 Oxygen Delivery Method Room Air 12/31/24 08:22 Results Reviewed Results Reviewed: will review his CXR in the office Assessment & Plan Assessment & Plan (1) SOB (shortness of breath): Code(s): R06.02 - Shortness of breath Plan Most likely COPD exacerbation vs URI vs bronchitis plan - Continue albuterol as needed for exacerbations. - Obtain x-ray to evaluate lung status. - z-lucio as directed - will refill his medications - Recommend referral to lung cancer screening program. - Advise follow-up with forger helper for nodule monitoring. Orders: Orders XR chest 2V Today R05.9 - Cough, unspecified Medications: New albuterol sulfate 1.25 mg (3 mL) inhalation Q4-6H PRN 90 mL 0RF Shortness Of Breath Or Wheezing azithromycin For 250 mg dose pack: take 500 mg today (day 1), then 250 mg for 4 days (days 2-5) PO 6 tabs 0RF albuterol sulfate 90 mcg/actuation 2 puffs inhalation Q6H PRN 8.5 grams 0RF shortness of breath or wheezing or cough NS prednisone 40 mg (2 x 20 mg) PO DAILY 10 tabs 0RF 5 days Coding Level of Care Code Est Pt Level 4 (48120) Diagnoses SOB (shortness of breath) R06.02
[2024-12-31 08:22] VITALS: BP 122/82; PULSE 78; TEMP 36.8; O2SAT 98
== END 2024-12-31 09:02 | disposition home or self-care (01) ==
PROVIDERS: PCP Nurse Practitioner Family; Visit Provider Physician Assistant Medical
DX: R06.02 Shortness of breath (principal)

== ENCOUNTER → 2024-12-31 09:01 | Outpatient (BNV) | payer OTHER, SELFPAY | PROVIDERS: PCP Nurse Practitioner Family; Visit Provider Radiology Diagnostic Radiology | DX: R05.9 Cough, unspecified (principal) | CPT/HCPCS: 71046 ==

== ENCOUNTER 2025-01-01 07:09 | Emergency (ER) | payer OTHER, SELFPAY ==
--- NOTE | 2025-01-01 07:12 | ECG_ITS ---
Test Reason : CHEST PAIN Blood Pressure : */* mmHG Vent. Rate : 89 BPM Atrial Rate : 89 BPM P-R Int : 142 ms QRS Dur : 78 ms QT Int : 332 ms P-R-T Axes : 78 16 54 degrees QTcB Int : 403 ms Normal sinus rhythm Possible Left atrial enlargement Minimal voltage criteria for LVH, may be normal variant ( [place] product ) Borderline ECG When compared with ECG of 22-Feb-2023 07:05, Premature supraventricular complexes are no longer Present Referred By: Generic ED Physician Electronically Signed By: LEROY LANDIS
[2025-01-01 07:21] VITALS: BP 131/63; PULSE 88; RESP 18; TEMP 36.7; O2SAT 100; BMI 18.3
[2025-01-01 07:42] LABS: MANUAL DIFF FLAG NO
[2025-01-01 07:43] LABS: Hematocrit 40.8 % (42.0-52.0); Hemoglobin 13.8 g/dl (14.0-18.0); Imm Gran Abs Auto 0.02 X10*3/uL (0.00-0.03); Imm Gran Pct Auto 0.2 % (0.0-0.4); Lymphocytes Absolute Auto 2.1 X10*3/uL (1.2-4.9); Mean Corpuscular HGB Conc 33.8 g/dl (31.0-36.0); Mean Corpuscular Hemoglobin 31.9 pg (27.0-33.0); Mean Corpuscular Volume 94.2 fL (80.0-98.0); NRBC Abs Auto 0.000 X10*3/uL (0.0-0.012); NRBC Pct Auto 0.0 /100WBC (0.0-0.2); Platelet Count 202 X10*3/uL (160-400); Red Blood Count 4.33 X10*6/uL (4.60-5.80); White Blood Count 9.0 X10*3/uL (4.8-10.8)
[2025-01-01 07:48] LABS: INTERNATIONAL NORM RATIO 1.0 (0.9-1.1); Prothrombin Time 11.5 SEC (10.9-12.4)
[2025-01-01 07:56] LABS: Alanine Aminotransferase 17 U/L (0-40); Albumin Level 4.7 g/dL (3.5-5.0); Alkaline Phosphatase 46 U/L (39-117); Anion Gap 12 (12-20); Aspartate Amino Transferase 21 U/L (5-37); Blood Urea Nitrogen 17 mg/dL (9-16); Calcium 9.4 mg/dL (8.4-10.2); Carbon Dioxide 27 mmol/L (22-29); Chloride 106 mmol/L (96-108); Creatinine Clr Calc Pharmacy 89.6; Estimated Glomerular Filt Rate > 60; Potassium 4.0 mmol/L (3.3-5.1); Sodium 141 mmol/L (135-145); Total Protein 6.9 g/dL (6.5-8.0)
[2025-01-01 08:04] LABS: Troponin-I High Sensitivity < 2.7 ng/L (<3.5-35.0)
--- NOTE | 2025-01-01 09:21 | ED.CHESTPAIN ---
HPI - Chest Pain General Chief Complaint: Chest Pain Stated Complaint: Chest pain Time Seen by Provider: 01/01/25 09:20 Source: patient, RN notes reviewed and old records reviewed Mode of arrival: ambulatory Limitations: no limitations History of Present Illness ED Provider: Azul SALGUERO narrative: Patient is a 49-year-old male with history of COPD, recurrent bronchitis, lung nodule, OUD in past has not used in 1 year-3months presenting with complaint of intermittent episodes of chest pain since October. States pain is to left anterior chest, lasts just a few seconds per episode. Feels pain is worst at night when he is laying down resting. Denies associated dyspnea, nausea, vomiting or diaphoresis. Admits to smoking cannabis, denies cigaratte smoking. Feels episodes have been becoming more frequent. Went to urgent care yesterday and was prescribed azithromycin and prednisone to bring with him on upcoming hunting trip, as he states this typically triggers his episodes of bronchitis. He denies any current cough, dyspnea, or fevers. Denies and calf pain or swelling. Does note that his brother has a history of PEs. MD complaint: chest pain Related Data Home Medications ?Medication ?Instructions ?Recorded ?Confirmed methadone 40 mg soluble tablet 20 mg PO DAILY 12/31/24 Previous Rx's ?Medication ?Instructions ?Recorded naloxone 4 mg/actuation nasal spray 4 mg intranasal Q2M PRN opioid 05/04/21 overdose #2 ea albuterol sulfate 2.5 mg/0.5 mL 5 mg inhalation Q4H PRN shortness 04/21/23 solution for nebulization of breath or wheezing #30 ea albuterol sulfate 90 mcg/actuation 2 puff inhalation Q4-6H PRN 06/01/24 aerosol inhaler shortness of breath or wheezing #6.7 grams meloxicam 15 mg tablet 15 mg PO DAILY PRN pain #30 tabs 10/10/24 albuterol sulfate 1.25 mg/3 mL 1.25 mg (3 mL) inhalation Q4-6H 12/31/24 solution for nebulization PRN Shortness Of Breath Or Wheezing #90 mL albuterol sulfate 90 mcg/actuation 2 puff inhalation Q6H PRN 12/31/24 aerosol inhaler shortness of breath or wheezing or cough #8.5 grams azithromycin 250 mg tablet See Rx Instructions PO .COMPLEX #6 12/31/24 tabs prednisone 20 mg tablet 40 mg (2 x 20 mg) PO DAILY 5 days 12/31/24 #10 tabs Allergies Allergy/AdvReac Type Severity Reaction Status Date / Time amoxicillin (AMOXICILLIN) AdvReac Intermediate NAUSEA & Verified 01/01/25 07:24 VOMITING clavulanic acid (Augmentin) AdvReac Intermediate Vomiting Verified 01/01/25 07:24 Review of Systems Review of Systems: As per HPI Yes all other systems are reviewed and are negative Constitutional: Constitutional: Reports as per HPI [facility] Past Medical History Medical History (Updated 01/01/25 @ 10:00 by Connie Liang NP) Back pain Leg pain Hypogonadism in male Chronic obstructive pulmonary disease (COPD) Asthma Opioid use disorder Surgical History History of surgery on arm Social History Social History Patient Tobacco Use Status: Never used Tobacco Substance Use Type: Former Substance User, Heroin and Marijuana Advance Directives: No Advance Directives Information Provided: Yes Physical Exam Vital Signs: Vital Signs: Last Vital Signs Temp 98.0 F 01/01/25 07:21 Pulse 88 01/01/25 07:21 Resp 18 01/01/25 07:21 BP 131/63 01/01/25 07:21 Pulse Ox 100 01/01/25 07:21 O2 Del Method Room Air 01/01/25 07:21 BMI result Body Mass Index 18.3 Vital signs have been reviewed and appear to be correct. Blood pressure normal. Heart rate normal. Respiratory rate normal. Temperature normal. Oxygen saturation normal. Const: General: cooperative, healthy appearing and no acute distress Orientation/consciousness: oriented to person, oriented to place, oriented to time and patient oriented x3 Limitations: no limitations HEENT: Head: Yes normocephalic and Yes atraumatic Ears: external ears normal General nose exam: Normal external nose present Face and sinus: Yes face symmetric Mouth: oropharynx normal and moist mucous membranes Throat: Yes uvula midline Eyes: Pupils: Equal, round and reactive pupils present Neck: Neck: Yes normal visual inspection and Yes supple Resp: Effort & Inspection: normal respiratory effort and able to speak in complete sentences Auscultation: clear to auscultation bilaterally Cardio: Rate: regular rate Rhythm: regular rhythm Heart sounds: S1 normal heart sound present and S2 normal heart sound present GI: Palpation (GI): Soft to palpation and nontender Auscultation: normoactive bowel sounds : General: Yes no CVA tenderness Back/Spine/Pelvis: Back: no CVA tenderness Skin: General skin exam: elasticity normal and turgor normal Neuro: General: oriented to person, oriented to place, oriented to time, patient oriented x3, moves all extremities, no focal motor deficits and CN's II-XI intact bilaterally Cranial nerves: Yes Equal, round and reactive pupils present Cognition (Neuro): normal cognition Extrem: General: Yes full ROM, Yes no pedal edema and Yes no calf tenderness Psych: Mental Status: mental status grossly normal Affect: normal affect Thought process: Normal thought process present Medical Decision Making Medical Decision Making [facility] Narrative: Patient is a 49-year-old male with history of COPD, recurrent bronchitis, lung nodule, OUD in past has not used in 1 year-3months presenting with complaint of intermittent episodes of chest pain since October. On exam patient is awake, A+Ox3, VS WNL, afebrile, normal neurological exam without focal deficits, physical exam findings as above. Given reported symptoms and physical exam findings, initial differential includes but is not limited to musculoskeletal pain, GERD, pneumonia. Will obtain d-dimer, suspicion for PE low but given family history will rule out. Given ongoing nature very unlikely ACS, pneumothorax, pericarditis/endocarditis, esophageal rupture. Labs unremarkable, negative troponin, negative d-dimer, PE unlikely. EKG shows NSR. Chest x-ray taken at urgent care yesterday is without evidence of pneumonia, mass, pneumothorax. My interpretation is in agreement with the radiologist's interpretation. Results discussed with patient and all questions answer. Patient in no acute distress, hemodynamically stable. Will recommend follow up with PCP for further evaluation of symptoms, will also refer to cardiology as patient states he was supposed to have stress test in the past but did not due to opiate use. Return precautions discussed. Patient verbalized understanding of and agreement with plan. Differential Diagnosis Differential Diagnoses: The differential diagnosis associated with the presentation includes as per [facility] Admission/Observation Consideration of admission/observation: Escalation of care including admission/observation considered Patient would have been admitted to the hospital and transferred to appropriate facility had their clinical presentation warranted hospital admission. Lab Data [facility] Lab Attestation statement: I reviewed the patient's lab results. as per [facility] 01/01/25 07:36 01/01/25 07:36 Labs: Lab Results 01/01/25 Range/Units 07:36 WBC 9.0 (4.8-10.8) X10*3/uL RBC 4.33 L (4.60-5.80) X10*6/uL Hgb 13.8 L (14.0-18.0) g/dl Hct 40.8 L (42.0-52.0) % MCV 94.2 (80.0-98.0) fL MCH 31.9 (27.0-33.0) pg MCHC 33.8 (31.0-36.0) g/dl RDW 13.1 (11.0-16.0) % Plt Count 202 (160-400) X10*3/uL MPV 9.7 (9.4-12.4) fL Immature Gran % (Auto) 0.2 (0.0-0.4) % Neut % (Auto) 70.5 (45-73) % Lymph % (Auto) 22.7 (20-40) % [place] % (Auto) 5.5 (2-11) % Eos % (Auto) 0.8 (0-4) % Baso % (Auto) 0.3 (0-2) % Lymph # (Auto) 2.1 (1.2-4.9) X10*3/uL [place] # (Auto) 0.5 (0.1-1.2) X10*3/uL Eos # (Auto) 0.1 (0.0-0.4) X10*3/uL Baso # (Auto) 0.0 (0.0-0.2) X10*3/uL Abs Immat Gran (auto) 0.02 (0.00-0.03) X10*3/uL Absolute Neuts (auto) 6.4 (2.0-8.3) x10*3/uL Absolute Nucleated RBC 0.000 (0.0-0.012) X10*3/uL Nucleated RBC % (auto) 0.0 (0.0-0.2) /100WBC PT 11.5 (10.9-12.4) SEC INR 1.0 (0.9-1.1) D-Dimer High Sensitivty < 150 NG/ML Sodium 141 (135-145) mmol/L Potassium 4.0 (3.3-5.1) mmol/L Chloride 106 (96-108) mmol/L Carbon Dioxide 27 (22-29) mmol/L Anion Gap 12 (12-20) BUN 17 H (9-16) mg/dL Creatinine 0.82 (0.5-1.4) mg/dL Estim Creat Clear Calc 89.6 Estimated GFR > 60 Random Glucose 151 H (60-115) mg/dL Calcium 9.4 (8.4-10.2) mg/dL Total Bilirubin 0.6 (0.0-1.0) mg/dL Direct Bilirubin 0.2 (0.0-0.5) mg/dL AST 21 (5-37) U/L ALT 17 (0-40) U/L Alkaline Phosphatase 46 (39-117) U/L Troponin I High Sens < 2.7 (<3.5-35.0) ng/L Total Protein 6.9 (6.5-8.0) g/dL Albumin 4.7 (3.5-5.0) g/dL Independent Interpretation I performed an independent interpretation of an: EKG (normal sinus rhythm, rate 89bpm, normal ND interval and QTc) and Plain X-Ray Interpretation: Chest x-ray taken at urgent care yesterday is without evidence of pneumonia, mass, pneumothorax. Radiology Impression Discussion of test interpretation with radiology: I have reviewed the radiologist's reading. Radiologist Impression: XR/XR chest 2V IMPRESSION: Hyperinflated lungs without acute airspace disease. External Record Review External record reviewed: Inpatient record, Office record and Outpatient record Discharge Plan Discharge Clinical Impression: Chest pain Patient Disposition: Home, Self-Care Instructions: Chest Pain (DC), Noncardiac Chest Pain (ED) Additional Instructions: You were evaluated in the emergency department today for chest pain. Your evaluation has shown no signs of medical conditions requiring emergent intervention at this time, however we recommend that you follow-up with your primary care physician or your dipper and baker for further testing as an outpatient. Please schedule an appointment for follow-up with your primary care physician this week. Return to the emergency department if you experience worsening or uncontrolled chest pain, shortness of breath, lightheadedness, feeling faint, loss of consciousness, nausea, vomiting, or any other concerning symptoms. Prescriptions: No Action naloxone 4 mg/actuation spray,non-aerosol 4 mg intranasal Q2M PRN (Reason: opioid overdose) Qty: 2 0RF Rx Instructions: spray 1 dose into ONE nostril; alternate nostrils w each dose until help arrives meloxicam 15 mg tablet 15 mg PO DAILY PRN (Reason: pain) Qty: 30 2RF albuterol sulfate 2.5 mg/0.5 mL solution for nebulization 5 mg inhalation Q4H PRN (Reason: shortness of breath or wheezing) Qty: 30 0RF methadone 40 mg tablet,soluble 20 mg PO DAILY azithromycin 250 mg tablet See Rx Instructions PO .COMPLEX Qty: 6 0RF Rx Instructions: For 250 mg dose pack: take 500 mg today (day 1), then 250 mg for 4 days (days 2-5) PO albuterol sulfate 1.25 mg/3 mL solution for nebulization 1.25 mg inhalation Q4-6H PRN (Reason: Shortness Of Breath Or Wheezing) Qty: 90 0RF albuterol sulfate 90 mcg/actuation HFA aerosol inhaler 2 puff inhalation Q6H PRN (Reason: shortness of breath or wheezing or cough) Qty: 8.5 0RF prednisone 20 mg tablet 40 mg PO DAILY 5 Days Qty: 10 0RF albuterol sulfate 90 mcg/actuation HFA aerosol inhaler 2 puff inhalation Q4-6H PRN (Reason: shortness of breath or wheezing) Qty: 6.7 0RF Referrals: [facility] [Provider Group] Referral Note: sxs ongoing for months Clinical Impression: Chest pain Print Language: Filipino
[2025-01-01 09:42] LABS: D Dimer High Sensitivity < 150 NG/ML
[2025-01-01 10:00] VITALS: BP 128/62; PULSE 80; RESP 17; TEMP 36.6; O2SAT 97
[2025-01-01 10:35] VITALS: BP 128/62; PULSE 80; RESP 17; TEMP 36.6; O2SAT 97
== END 2025-01-01 10:36 | disposition home or self-care (01) ==
PROVIDERS: Registered Nurse Emergency; Emergency Provider Emergency Medicine; PCP Nurse Practitioner Family
DX: R07.9 Chest pain, unspecified (principal); J44.9 Chronic obstructive pulmonary disease, unspecified
CPT/HCPCS: 36415; 80053; 82248; 84484; 85025; 85379; 85610; 93005; 99283; 99284

== ENCOUNTER → 2025-01-01 07:12 | Outpatient (BNV) | payer OTHER, SELFPAY | PROVIDERS: Emergency Provider Emergency Medicine; PCP Nurse Practitioner Family; Visit Provider Internal Medicine | DX: R07.89 Other chest pain (principal) | CPT/HCPCS: 93010 ==

== ENCOUNTER 2025-02-23 10:14 | Outpatient (REF) | payer OTHER, SELFPAY ==
--- NOTE | ~2025-02-23 | CT_ITS ---
CLINICAL HISTORY: R91.1 - Solitary pulmonary nodule CT chest without contrast Comparison: 02/22/2023 Findings: [id number] two-vessel coronary artery calcifications. No cardiomegaly. The visualized thyroid and mediastinum are unremarkable. Smoking-related lung changes. Stable, benign scattered bilateral lung nodules and subpleural mostly wedge-shaped opacities measuring up to 4 mm (for example, in left lower lobe on series 5, image 303). No new lung nodule seen. The upper abdomen is unremarkable. The bones are intact. IMPRESSION: Stable benign bilateral lung nodules. No new lung nodule identified. [id number] two-vessel coronary artery calcifications. This document has been electronically signed by: Daisha Saucedo MD on 02/26/2025 11:55:33
== END 2025-02-23 10:15 | disposition home or self-care (01) ==
LOC: HO.CT 10:14
PROVIDERS: Visit Provider Nurse Practitioner Family
DX: R91.1 Solitary pulmonary nodule (principal); J44.9 Chronic obstructive pulmonary disease, unspecified
CPT/HCPCS: 71250

== ENCOUNTER → 2025-02-23 10:16 | Outpatient (BNV) | payer OTHER, SELFPAY | PROVIDERS: Visit Provider Radiology Diagnostic Radiology | DX: I25.10 Atherosclerotic heart disease of native coronary artery without angina pectoris (principal); R91.8 Other nonspecific abnormal finding of lung field | CPT/HCPCS: 71250 ==

== ENCOUNTER 2025-02-25 08:31 | Outpatient (AMB) | payer OTHER, SELFPAY ==
[2025-02-25 08:31] VITALS: BP 100/72; PULSE 60; BMI 19.0
--- NOTE | 2025-02-25 08:31 | MHC.OFFVIS ---
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 Extension Specialist Required: No Allergies amoxicillin (AMOXICILLIN) Adverse Reaction (Intermediate, Verified 02/25/25 08:33) NAUSEA & VOMITING clavulanic acid (Augmentin) Adverse Reaction (Intermediate, Verified 02/25/25 08:33) Vomiting Medication List - Last Reconciled 02/25/25 by KARMA Pope albuterol sulfate 5 mg inhalation Q4H PRN albuterol sulfate 1.25 mg (3 mL) inhalation Q4-6H PRN meloxicam 15 mg PO DAILY PRN methadone 20 mg PO DAILY naloxone 4 mg/actuation 4 mg intranasal Q2M PRN prednisone 40 mg (2 x 20 mg) PO DAILY 5 days HPI 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 The chest pain began in October, occurs intermittently for seconds at a time before resolving, and is worse at night and when lying down, though it can occur in any position. The patient describes it as a shooting, stabbing, fluttering pain that can occur anywhere in the chest. The symptoms are not brought on by activity, and the patient recently completed a two-week hunting trip involving walking up to five miles daily without significant issues. The ER workup ruled out acute coronary syndrome with normal troponins and no ischemic EKG changes, and a chest x-ray showed no active disease; however, the CRP was elevated at 1.74 and the D-dimer was negative. The patient's medical history is significant for asthma, COPD, and bronchitis. There is a history of a 4 mm pulmonary nodule in the left lung, which was stable on a prior scan, and the patient recently had another chest scan with results pending. He reports other symptoms including occasional palpitations, shortness of breath, dizziness if he gets up quickly, and episodes of waking from sleep with a pounding heart and panic. The patient has no prior diagnosed cardiac history but wore a heart monitor once before the COVID-19 pandemic, which was an incomplete study. The patient has a history of heroin and cocaine use and has been clean for over a year, currently on methadone maintenance therapy. The patient smokes cannabis but denies cigarette smoking or alcohol use, and reports drinking about 8 cups of coffee daily. Family history is notable for a great-grandmother with congestive heart failure, while history on the paternal side is unknown. 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 [facility] Medical History Back pain Leg pain Hypogonadism in male Chronic obstructive pulmonary disease (COPD) Asthma Opioid use disorder Surgical History History of surgery on arm Social History Patient Tobacco Use Status: Never used Tobacco Substance Use Type: Former Substance User, Heroin and Marijuana Review of Systems Const All systems reviewed & are unremarkable except as noted in HPI and below ENT Denies dizziness Card Details: flutter in chest Reports chest pain, Reports chest pain at rest, Denies chest pain with activity, Denies rapid heart rate, Denies pedal edema, Denies edema, Denies leg edema, Denies lightheadedness, Denies palpitations, Reports dyspnea, Reports dyspnea on exertion and Denies orthopnea Resp Denies cough, Reports dyspnea and Reports dyspnea on exertion GI Denies hematochezia and Denies change in stool character Musc Denies abnormal gait, Denies limited range of motion, Denies muscle cramps, Denies muscle weakness, Denies numbness, Denies radiating pain into limb, Denies stiffness and Denies tingling Neuro Denies abnormal gait, Denies dizziness, Denies numbness and Denies tingling Endo Denies palpitations Physical Exam Vital Signs: Last Vital Signs Pulse 60 02/25/25 08:31 BP 100/72 02/25/25 08:31 BMI result Body Mass Index 19.0 Const General: cooperative, healthy appearing, comfortable and no acute distress Orientation/consciousness: patient oriented x3 Neck Neck: Yes normal visual inspection and Yes no JVD Resp Effort & Inspection: normal respiratory effort Auscultation: clear to auscultation bilaterally, no rales, no rhonchi and no wheezes Cardio Rate: regular rate Rhythm: regular rhythm Heart sounds: S1 normal heart sound present, S2 normal heart sound present, no gallops, no murmurs and no rubs Neuro General: patient oriented x3 Extrem General: Yes normal to inspection, No no pedal edema and No calf tenderness Psych Appearance: grossly normal Mental Status: mental status grossly normal Speech and movement: Normal speech and movement present Office Procedures EKG Details: Today, read by me, sinus rhythm, no acute ST / T waves, rate 60, Qtc 368ms [id number], Complete Assessment & Plan Assessment & Plan (1) Atypical chest pain: Code(s): R07.89 - Other chest pain Category: Medical Plan: Report of random, atypical chest discomfort. Cardiac risks of smoking cannabis. Unknown paternal family hx. Will check an exercise stress test to evaluate for ischemia. Prior EKG does show finidngs of LVH. Will check an echo to assess for structural heart disease. (2) Palpitation: Code(s): R00.2 - Palpitations Category: Medical Plan: Report of intermittent fluttering in chest. EKGs show SR. Will check holter to assess for arrythmia. (3) Chronic obstructive pulmonary disease (COPD): Code(s): J44.9 - Chronic obstructive pulmonary disease, unspecified Category: Medical Plan: Hx of COPD, asthma, bronchitis. Followed by PCP Plan I explained to the patient that the character of the chest pain does not sound typical for a cardiac origin, but given the symptoms, a cardiac screening is appropriate to ensure there are no underlying issues. I reviewed the plan, which includes an exercise stress test, an echocardiogram to assess heart structure and function, and a 3-day Holter monitor to evaluate for arrhythmias, especially given the reports of fluttering sensations. I informed the patient that central scheduling from the hospital would call to arrange these tests. We will have the patient return for a follow-up visit in 6-8 weeks to discuss the results of the comprehensive cardiac workup. Orders: Orders ECG 3 day holter monitor Today J44.9 - Chronic obstructive pulmonary disease, unspecified, R00.2 - Palpitations, R07.89 - Other chest pain CA stress test Today J44.9 - Chronic obstructive pulmonary disease, unspecified, R00.2 - Palpitations, R07.89 - Other chest pain CA echo transthoracic complete Today J44.9 - Chronic obstructive pulmonary disease, unspecified, R00.2 - Palpitations, R07.89 - Other chest pain Patient Instructions: - We are ordering a few tests to screen your heart because of your chest discomfort, even though it does not seem like typical heart pain. - You will wear a heart monitor for three days. It is a simple sticker that goes on your chest, and you can shower with it. After three days, you will mail it back. - You will also have an exercise stress test, where you walk on a treadmill, and an echocardiogram, which is an ultrasound of your heart. - The hospital's scheduling department will call you to set up your appointments for these tests. - Please return to the clinic in 6-8 weeks to discuss your test results. Patient was informed and verbally consented to the use of an ambient scribe for clinic note documentation during this visit. Visit time spent on chart review, interview, assessment, orders, documentation. Coding Level of Care Code New Pt Level 4 (82454) Complex visit Add On G2211 Diagnoses Atypical chest pain R07.89 Palpitation R00.2 Chronic obstructive pulmonary disease (COPD) J44.9 CPT Codes EKG - CPT: 11119-[id number], Complete ([id number]) Time Spent (min) 30
== END 2025-02-25 08:58 | disposition home or self-care (01) ==
PROVIDERS: PCP Nurse Practitioner Family; Visit Provider Nurse Practitioner Family
DX: R07.89 Other chest pain (principal); R00.2 Palpitations; J44.9 Chronic obstructive pulmonary disease, unspecified
CPT/HCPCS: 93010; 99204

== ENCOUNTER → 2025-02-25 08:31 | Outpatient (BNVA) | payer OTHER, SELFPAY | PROVIDERS: PCP Nurse Practitioner Family; Visit Provider Nurse Practitioner Family | DX: R00.2 Palpitations (principal); J44.9 Chronic obstructive pulmonary disease, unspecified; R07.89 Other chest pain | CPT/HCPCS: 93005; 99202 ==

== ENCOUNTER 2025-03-06 09:07 | Outpatient (AMB) | payer OTHER, SELFPAY ==
[2025-03-06 09:10] VITALS: BP 122/70; PULSE 88; RESP 16; O2SAT 98; BMI 18.8
--- NOTE | 2025-03-06 09:10 | A.OFFPC_ITS ---
Vital Signs 03/06/25 09:10 Height 5 ft 10.5 in Weight 133 lb BMI 18.8 BP 122/70 Blood Pressure Location Lt brachial Position Sitting Respiration 16 Pulse 88 Pulse Source Pulse Oximeter Pulse Oximetry (%) 98 Oxygen Delivery Method Room Air Intake Visit Reasons: Discuss CT results Mail Superintendent Required: No Accompanied by: Self / Same As Patient Allergies amoxicillin (AMOXICILLIN) Adverse Reaction (Intermediate, Verified 03/06/25 10:04) NAUSEA & VOMITING clavulanic acid (Augmentin) Adverse Reaction (Intermediate, Verified 03/06/25 10:04) Vomiting Medication List - Last Reconciled 03/06/25 by Miguel Ángel Crowell, FSR- albuterol sulfate 5 mg inhalation Q4H PRN albuterol sulfate 1.25 mg (3 mL) inhalation Q4-6H PRN atorvastatin (Lipitor) 10 mg PO BEDTIME 30 days budesonide-formoterol 80-4.5 mcg/actuation (Symbicort) 2 puffs inhalation BID meloxicam 15 mg PO DAILY PRN methadone 20 mg PO DAILY naloxone 4 mg/actuation 4 mg intranasal Q2M PRN Tobacco use date assessed: 03/06/25 Dental Screening Dental Screen Date: 03/06/25 Did you have a dental visit in the last 12 months?: No Did you have a dental problem in the last 6 months where you did not have access to dental care?: No Was dental information given to patient?: Patient declined HPI Discuss CT results HPI Details Chief Complaint The patient presents with ongoing chest discomfort. History of Present Illness The patient is a 49 year old individual presenting for follow-up on chest pain and management of chronic conditions. The patient was seen in the hospital emergency room on 01/01/2025 for left anterior chest pain that occurs mostly at night and lasts for seconds. During that visit, an EKG showed normal sinus rhythm and a chest x-ray was without evidence of pneumonia, mass, or pneumothorax. The patient was subsequently referred to cardiology and was seen on 02/25/2025, at which time a stress test, echocardiogram, and a 3-day Holter monitor were ordered; results are pending. The patient reports the chest discomfort is ongoing and can be associated with inhalation or exhalation, and sometimes with turning the upper torso, though it is not reproducible with palpation. The patient has a history of Chronic Obstructive Pulmonary Disease (COPD) and was previously treated at an urgent care with azithromycin and prednisone. There is also a history of a pulmonary nodule and coronary artery calcifications. The patient's last visit was in 2019. The patient reports a history of sniffing and injecting heroin and using opiates, but has been sober for approximately one year and three months. The patient no longer smokes cigarettes but does smoke marijuana. Social History - Substance Use: The patient reports a h istory of sniffing heroin, injecting heroin, and using opiates. - The patient has been sober for approxi mately one year and three months. - The patient does not smoke cigarettes but uses marijuana. Health Maintenance Labs have been ordered. The patient will follow up next month for a full physical examination. Review of Systems - Cardiovascular: Reports intermittent l eft anterior chest discomfort lasting for seconds, occurring mostly at night. - Respiratory: Reports chest discomfort can occur with inhalation or exhalation. - Musculoskeletal: Reports chest discomf ort can be elicited by turning the upper torso side to side, but denies reproducibility with palpation. - General: Denies current chest pain. denies any dizziness, BISHOP, blurred vision Physical Exam General: Cooperative, healthy appearing, comfortable, no acute distress and well developed Orientation: Patient oriented x3 Limitations: No limitations Head: Normal to inspection Ears: Hearing grossly normal bilaterally Nose: Normal external nose present Face and sinus: Normal facial exam Eyes: Appearance normal, both eyes and all related structures Neck: Normal visual inspection and Yes full ROM Respiratory: Some scattered rhonchi throughout, normal respiratory effort and able to speak in complete sentences. Clear to auscultation bilaterally Cardiovascular: Regular rate and rhythm. Normal S1 and S2 GI: Normal to inspection. Soft to palpation and nontender Neuro: Patient oriented x3 Extremities: Normal to inspection Results - EKG (from ER visit): Revealed normal s inus rhythm. - Chest X-ray (from ER visit): Showed no evidence of pneumonia, mass, or pneumothorax. - Prior Imaging: Noted coronary artery c alcifications. - Ordered Tests (results pending): Stres s test, echocardiogram, and 3-day Holter monitor. Plan 1. Chest Pain The patient presented to the ER on 01/01/2025 for chest pain, where an EKG showed normal sinus rhythm and a chest x-ray was unremarkable. A cardiology consultation was completed on 02/25/2025, and a stress test, echocardiogram, and 3-day Holter monitor have been ordered. We will await the results of this cardiac workup. 2. Chronic Obstructive Pulmonary Disease The patient is currently on albuterol for COPD. Symbicort will be initiated, and the patient was counseled to rinse the mouth after each use. A referral will be sent for PFT testing and to a field specialist for further evaluation and management, also considering the patient's history of a pulmonary nodule. 3. Coronary Artery Calcification Due to a history of coronary artery calcifications, a statin will be initiated for secondary prevention. Discussion Notes I have advised the patient that we will await the cardiology workup, which includes a stress test, an echocardiogram, and a Holter monitor, to further evaluate the chest discomfort. For the COPD, I explained that we will start Symbicort and that the patient should rinse the mouth after use. I have also arranged for pulmonary function tests and a referral to a field specialist. I discussed initiating a statin medication due to the finding of coronary artery calcifications. We will follow up next month for a complete physical exam. Patient Instructions - Start taking the Symbicort inhaler as prescribed for your breathing. - Make sure to rinse your mouth out with water after each time you use it. - You will be started on a statin medica tion to protect your heart. - You will be referred to a lung special ist (obstetrics and gynecology professor) and for a breathing test (PFT). - Please complete the heart tests ordere d by your construction craft laborer (stress test, echocardiogram, and Holter monitor). - You have a follow-up appointment next month for a full physical exam. [facility] Medical History Lung nodules Back pain Leg pain Hypogonadism in male Chronic obstructive pulmonary disease (COPD) Asthma Opioid use disorder Surgical History History of surgery on arm Social History Patient Tobacco Use Status: Never used Tobacco Substance Use Type: Former Substance User, Heroin and Marijuana Questionnaire PHQ-9 Over the last 2 weeks, how often have you been bothered by any of the following problems? 1. Little interest or pleasure in doing things: nearly every day 2. Feeling down, depressed, or hopeless: nearly every day 3. Trouble falling or staying asleep, or sleeping too much: nearly every day 4. Feeling tired or having little energy: nearly every day 5. Poor appetite or overeating: more than half the days 6. Feeling bad about yourself - or that you are a failure or have let yourself or your family down: more than half the days 7. Trouble concentrating on things, such as reading the newspaper or watching television: more than half the days 8. Moving or speaking so slowly that other people could have noticed. Or the opposite - being so fidgety or restless that you have been moving around a lot more than usual: nearly every day 9. Thoughts that you would be better off or of hurting yourself in some way: not at all Total score: 21 Depression Screening Interpretation: Positive (denies any si or hi. will have sam reach out to pt) Depression Screening Follow-up: Existing condition and Community Mental Health Worker F/U Depression Screening Done: Yes 95621 - PHQ-9 Billing: Yes Source: Developed by Drs. Akin Ramirez, Sandra Tamez, Raz Duckworth and colleagues, with an educational vigrinie from [employer]. Thrive Questionnaire Date Thrive assessed: 03/05/25 I am a: Patient What is your living situation today?: I have a steady place to live Within the past 12 months, did the food you bought not last and you didn't have the money to get more?: Never true Within the past 12 months, did you worry whether your food would run out before you got money to buy more?: Never true Do you have trouble paying for medicines?: No Do you have trouble getting transportation to medical appointments?: No Do you have trouble paying your heating and electricity bill?: No Do you have trouble taking care of your child, family member or friend?: No Do you have trouble with day-to-day activities such as bathing, preparing meals, shopping, managing finances, etc.?: No Are you currently unemployed and looking for a job?: No Are you interested in more education?: No Please select the resources that you would like help with: None Currently or been in a relationship where the following occur: No concerns reported THRIVE Score: 0 AUDIT C Alcohol Use Questionnaire (AUDIT-C) 1. How often do you have a drink containing alcohol?: Never Total Score: 0 ANJELICA-7 AMB Questionnaire ANJELICA-7 Date ANJELICA - 7 assessed: 03/06/25 Feeling nervous, anxious, or on edge: 3 = Nearly every day Not being able to stop or control worryin = Nearly every day Worrying too much about different things: 2 = More than half the days Trouble relaxin = More than half the days Being so restless that it is hard to sit still: 2 = More than half the days Becoming easily annoyed or irritable: 0 = Not at all Feeling afraid as if something awful might happen: 0 = Not at all Total ANJELICA-7 score (0-4 normal; 5-9 mild; 10-14 moderate; 15-21 severe): 12 Source: Developed by Drs. Akin Ramirez, Sandra Tamez, Raz Duckworth and colleagues, with an educational virginie from [employer]. ANJELICA-7 Assessment Billing ANJELICA-7 Assessment Tool: ANJELICA-7 Assessment 82355 (denies any si or hi, will have sam reach out to pt) Physical exam (Primary Care) Vital Signs: Last Vital Signs Pulse 88 03/06/25 09:10 Resp 16 03/06/25 09:10 BP 122/70 03/06/25 09:10 Pulse Ox 98 03/06/25 09:10 Oxygen Delivery Method Room Air 03/06/25 09:10 BMI result Body Mass Index 18.8 Tobacco/Smoking Status: Tobacco use Status Tobacco use date assessed 03/06/25 03/06/25 09:16 Patient Tobacco Use Status Never used Tobacco 03/06/25 09:16 PHQ-9: PHQ-9 Score PHQ-9: Total score 21 03/06/25 09:56 Depression Screening Interpretation: Positive (denies any si or hi. will have sam reach out to pt) Depression Screening Follow-up: Existing condition and Community Mental Health Worker F/U Thrive Assessment: Date of Thrive Assessment Date Thrive assessed 03/05/25 03/06/25 09:16 Currently or been in a relationship where the following occur: No concerns reported Immunizations pneumoc 20-alberto conj-dip cr(PF) 0.5 mL IM syringe Performing Provider: SHANIQUE Land Performing Location: [facility] Administered by: Barb Walker MA on 03/06/25 09:56 Dose Route Admin Location Dispensed Lot Number Expiration Date [facility] Amr Physician 0.5 mL IM Right Deltoid 0.5 mL [id number] 01/02/26 [id number] [employer] Total Dispensed Waste 0.5 mL 0 % VIS Given Date VIS Provided VIS Publication Date 03/06/25 Single Vaccine 24 Eligibility Eligibility Date Funding Source Not [facility] Eligible 03/06/25 Private Coding Level of Care Code Est Pt Level 4 (16508) Diagnoses Chronic obstructive pulmonary disease (COPD) J44.9 Pulmonary nodule R91.1 Chest discomfort R07.89 Screening for colon cancer Z12.11 Additional Codes PHQ-9 - 33664 - PHQ-9 Billing: Yes ([id number]) ANJELICA-7 Assessment Billing - ANJELICA-7 Assessment Tool: ANJELICA-7 Assessment 54542 ([id number]) Assessment & Plan Assessment & Plan (1) Chronic obstructive pulmonary disease (COPD): Code(s): J44.9 - Chronic obstructive pulmonary disease, unspecified Category: Medical (2) Pulmonary nodule: Code(s): R91.1 - Solitary pulmonary nodule Category: Medical (3) Chest discomfort: Code(s): R07.89 - Other chest pain Category: Medical (4) Screening for colon cancer: Code(s): Z12.11 - Encounter for screening for malignant neoplasm of colon Category: Medical Plan . Orders: Orders PFT pulmonary function test Today J44.9 - Chronic obstructive pulmonary disease, unspecified, R91.1 - Solitary pulmonary nodule Complete Blood Count Auto Diff Today R07.89 - Other chest pain Comprehensive [place]. Panel Fast Today R07.89 - Other chest pain Lipid Panel Today R07.89 - Other chest pain Pneumococcal 20 Immunization Today Z23 - Encounter for immunization TSH reflex Free T4 Today R07.89 - Other chest pain UA CC w/rflx Micro + Cult Today R07.89 - Other chest pain Referrals Pulmonology Referral J44.9 - Chronic obstructive pulmonary disease, unspecified, R91.1 - Solitary pulmonary nodule Gastroenterology Referral Z12.11 - Encounter for screening for malignant neoplasm of colon Medications: New budesonide-formoterol 80-4.5 mcg/actuation (Symbicort) 2 puffs inhalation BID 10.2 grams 0RF atorvastatin (Lipitor) 10 mg PO BEDTIME 30 tabs 2RF 30 days
== END 2025-03-06 10:05 | disposition home or self-care (01) ==
LOC: HO.HMCC 09:07
PROVIDERS: PCP Nurse Practitioner Family; Visit Provider Nurse Practitioner Family
DX: J44.9 Chronic obstructive pulmonary disease, unspecified (principal); R91.1 Solitary pulmonary nodule; R07.89 Other chest pain; Z12.11 Encounter for screening for malignant neoplasm of colon; Z23 Encounter for immunization

== ENCOUNTER → 2025-03-06 09:07 | Outpatient (BNVA) | payer OTHER, SELFPAY | PROVIDERS: PCP Nurse Practitioner Family; Visit Provider Nurse Practitioner Family | DX: Z12.11 Encounter for screening for malignant neoplasm of colon (principal); Z23 Encounter for immunization; J44.9 Chronic obstructive pulmonary disease, unspecified; R91.1 Solitary pulmonary nodule; R07.89 Other chest pain | CPT/HCPCS: 90471; 90677; 96127; 99212 ==

== ENCOUNTER 2025-04-03 07:57 | Outpatient (REF) | payer OTHER, SELFPAY ==
--- NOTE | 2025-04-03 08:04 | PFT_ITS ---
Flows: FEV1: 68 % of predicted at 2.66 L FVC: 92 % of predicted at 4.58 L FEV1/FVC: 58 % Bronchodilator response: Present Volumes: Total lung capacity: 96 % of predicted at 6.91 L Residual volume: 129 % of predicted at 2.42 L Slow vital capacity: 84 % of predicted at 4.49 L Expiratory reserve volume: 151 % of predicted at 2.19 L Diffusion capacity: Moderately decreased Impression: Moderate obstructive ventilatory defect with positive bronchodilator response. Increased residual volume suggests air trapping. Decreased diffusion capacity suggests emphysema. MTDD
[2025-04-03 08:44] VITALS: PULSE 75
== END 2025-04-03 07:58 | disposition home or self-care (01) ==
LOC: HO.RESP 07:57
PROVIDERS: PCP Nurse Practitioner Family; Visit Provider Nurse Practitioner Family
DX: R91.1 Solitary pulmonary nodule (principal); J44.9 Chronic obstructive pulmonary disease, unspecified
CPT/HCPCS: 94060; 94640; 94727; 94729

== ENCOUNTER → 2025-04-03 08:04 | Outpatient (BNV) | payer OTHER, SELFPAY | PROVIDERS: PCP Nurse Practitioner Family; Visit Provider Internal Medicine Pulmonary Disease | DX: J44.9 Chronic obstructive pulmonary disease, unspecified (principal) | CPT/HCPCS: 94060; 94727; 94729 ==